=== PATIENT | female | born 1960 | race American Indian/Alaskan Native ===

== ENCOUNTER 2019-03-29 11:23 | Emergency (ER) | payer MEDICAID ==
[~2019-03-29] VITALS: Ht 165.1 cm; Wt 80.0 kg
[2019-03-29] MEDS ORDERED: KETOROLAC 15MG/ML VIAL IM ONE (12:00)
[2019-03-29 13:25] VITALS: BP 116/70
== END 2019-03-29 13:31 | disposition home or self-care (01) ==
LOC: ER 11:23
DX: M54.5 Low back pain (principal); R07.81 Pleurodynia; Y08.89XA Assault by other specified means, initial encounter; Y93.89 Activity, other specified; Y92.89 Other specified places as the place of occurrence of the external cause; Y99.8 Other external cause status
CPT/HCPCS: 96372; 99283; J1885

== ENCOUNTER 2019-04-23 21:04 | Emergency (ER) | payer MEDICAID ==
[~2019-04-23] VITALS: Ht 165.1 cm; Wt 95.0 kg
[2019-04-23] MEDS ORDERED: HYDROCODONE/ACETAMINOPHEN 5/325MG TABLET PO ONE (23:15)
[2019-04-24 00:25] VITALS: BP 121/75
== END 2019-04-24 00:26 | disposition home or self-care (01) ==
LOC: ER 21:27
DX: S20.212A Contusion of left front wall of thorax, initial encounter (principal); S20.211A Contusion of right front wall of thorax, initial encounter; W01.0XXA Fall on same level from slipping, tripping and stumbling without subsequent striking against object, initial encounter; Y93.89 Activity, other specified; Y92.89 Other specified places as the place of occurrence of the external cause; Y99.8 Other external cause status
CPT/HCPCS: 71111; 99283

== ENCOUNTER 2019-05-16 08:22 | Inpatient (IN) | payer MEDICAID ==
[~2019-05-16] VITALS: Ht 160 cm; Wt 84.4 kg
[2019-05-16 09:29] LABS: BASOPHILS % 0.6 % (0.0-2.0); EOSINOPHILS % 2.2 % (0.0-5.0); HEMATOCRIT. 38.3 % (36.0-48.0); HEMOGLOBIN. 13.5 g/dL (12.0-16.0); LYMPHOCYTES % 41.8 % (20.0-50.0); MEAN CORPUSCULAR HEMOGLOBIN 35.8 pg (28.0-32.0); MEAN CORPUSCULAR VOLUME 101.9 fL (81.0-99.0); MEAN PLATELET VOLUME 8.5 fl (7.4-10.4); MONOCYTES % 10.2 % (2.0-8.0); NEUTROPHILS % 45.2 % (40.0-76.0); PLATELET 395 x1000/uL (130-400); RED BLOOD CELL COUNT 3.76 mill/uL (4.2-5.4); RED CELL DISTRIBUTION WIDTH 15.3 % (11.6-14.6)
[2019-05-16 09:32] LABS: CHLORIDE 105 mEq/L (98-107)
[2019-05-16 09:36] LABS: ETHANOL BLOOD < 10 mg/dL
[2019-05-16] MEDS ORDERED: SODIUM CHLORIDE 0.9% 1,000 ML IV ONE (09:56)
[2019-05-16] MEDS ORDERED: POTASSIUM CHLORIDE 20MEQ TABLET SR PO NR (10:00)
[2019-05-16 10:01] LABS: CLARITY URINE CLEAR (CLEAR); COLOR URINE DARK YELLOW (YELLOW); KETONES URINE 1+ (NEGATIVE); LEUKOCYTE ESTERASE URINE TRACE (NEGATIVE); NITRITE URINE NEGATIVE (NEGATIVE); OCCULT BLOOD URINE NEGATIVE (NEGATIVE); PROTEIN URINE TRACE (NEGATIVE); SPECIFIC GRAVITY URINE 1.017 (1.005-1.030)
[2019-05-16] MEDS ORDERED: KETOROLAC 30MG/ML VIAL IV NR (10:15)
[2019-05-16 10:23] LABS: *BARBITURATES SCREEN URINE NEGATIVE (NEGATIVE)
[2019-05-16 10:25] LABS: *BENZODIAZEPINES SCREEN URINE NEGATIVE (NEGATIVE); *COCAINE SCREEN URINE NEGATIVE (NEGATIVE); CANNABINOID URINE SCREEN NEGATIVE (NEGATIVE); METHADONE URINE SCREEN NEGATIVE (NEGATIVE); OPIATES URINE SCREEN NEGATIVE (NEGATIVE); PHENCYCLIDINE URINE SCREEN NEGATIVE (NEGATIVE)
[2019-05-16 10:26] LABS: *AMPHETAMINES SCREEN URINE NEGATIVE (NEGATIVE)
[2019-05-16] MEDS ORDERED: KCL 20MEQ/100ML PREMIX 100 ML IV NR (10:30)
[2019-05-16] MEDS ORDERED: ACETAMINOPHEN 500MG TABLET PO ONE (11:00)
[2019-05-16 12:41] VITALS: BP 132/96
[2019-05-16 12:43] VITALS: BP 135/96
[2019-05-16] MEDS ORDERED: GUAIFENESIN 200MG/10ML SUGAR FREE UDC PO PRN (13:00)
[2019-05-16] MEDS ORDERED: NA PHOS,M-B/NA PHOS,DI-BA ENEMA 118ML PR PRN (13:00)
[2019-05-16] MEDS ORDERED: LORAZEPAM 2MG/ML CPJ IV PRN (13:00)
[2019-05-16] MEDS ORDERED: DOCUSATE SODIUM 100MG CAPSULE PO PRN (13:00)
[2019-05-16] MEDS ORDERED: ACETAMINOPHEN 325MG TABLET PO PRN (13:00)
[2019-05-16] MEDS ORDERED: DIPHENHYDRAMINE 50MG/ML VIAL IV PRN (13:00)
[2019-05-16] MEDS ORDERED: MAGNESIUM/ALUMINUM HYDROXIDE/SIMETHICONE 30ML UDC PO PRN (13:00)
[2019-05-16] MEDS ORDERED: IPRATROPIUM/ALBUTEROL 0.5-3(2.5)MG/3ML NEB INH PRN (13:00)
[2019-05-16] MEDS ORDERED: ONDANSETRON HCL 4MG/2ML INJ IV PRN (13:00)
[2019-05-16] MEDS: ASPIRIN 81MG EC TABLET PO SCH (14:20)
[2019-05-16] MEDS: ENOXAPARIN 40MG/0.4ML SYR SUBCUT SCH (14:21)
[2019-05-16] MEDS: DEXT 5%/0.45% NACL KCL 10MEQ/L 1,000 ML IV SCH (15:17)
[2019-05-16 15:29] LABS: CHLORIDE 109 mEq/L (98-107)
[2019-05-16] MEDS ORDERED: AMLO10TA4 PO (16:02)
[2019-05-16] MEDS ORDERED: MONT10TA24 PO (16:02)
[2019-05-16 16:14] VITALS: BP 140/60
[2019-05-16 19:38] VITALS: BP 155/104
[2019-05-17 00:36] VITALS: BP 138/91
[2019-05-17] MEDS: CLONIDINE 0.1MG TABLET PO PRN ×2 (03:36→21:53)
[2019-05-17] MEDS: DEXT 5%/0.45% NACL KCL 10MEQ/L 1,000 ML IV SCH ×3 (03:47→23:52)
[2019-05-17 03:54] VITALS: BP 125/101
[2019-05-17 07:42] LABS: BASOPHILS % 0.5 % (0.0-2.0); EOSINOPHILS % 3.8 % (0.0-5.0); HEMATOCRIT. 36.2 % (36.0-48.0); HEMOGLOBIN. 12.5 g/dL (12.0-16.0); LYMPHOCYTES % 33.2 % (20.0-50.0); MEAN CORPUSCULAR HEMOGLOBIN 35.7 pg (28.0-32.0); MEAN CORPUSCULAR VOLUME 103.3 fL (81.0-99.0); MEAN PLATELET VOLUME 8.9 fl (7.4-10.4); MONOCYTES % 10.2 % (2.0-8.0); NEUTROPHILS % 52.3 % (40.0-76.0); PLATELET 355 x1000/uL (130-400); RED CELL DISTRIBUTION WIDTH 16.1 % (11.6-14.6)
[2019-05-17 08:00] VITALS: BP 140/103
[2019-05-17] MEDS: ENOXAPARIN 40MG/0.4ML SYR SUBCUT SCH (09:11)
[2019-05-17] MEDS: ASPIRIN 81MG EC TABLET PO SCH (09:11)
[2019-05-17 09:27] LABS: CHLORIDE 109 mEq/L (98-107)
[2019-05-17 09:41] LABS: LDL CHOLESTEROL 92 mg/dL (5-100); T4 FREE 1.63 ng/dL (0.76-1.46)
[2019-05-17 09:42] LABS: HDL CHOLESTEROL 25 mg/dL (40-59)
[2019-05-17] MEDS ORDERED: POTASSIUM CHLORIDE INJ 40 MEQ in DEXT 5% WATER 250 ML IV NR (11:00)
[2019-05-17 12:00] VITALS: BP 137/90
[2019-05-17] MEDS: MORPHINE SULFATE 2 MG/ML CPJ (NOT FOR IM USE) IV PRN (12:34)
[2019-05-17 16:00] VITALS: BP 131/87
[2019-05-17 20:00] VITALS: BP 147/101
[2019-05-18] VITALS: BP 161/94
[2019-05-18 04:00] VITALS: BP 147/90
[2019-05-18 06:51] LABS: CHLORIDE 107 mEq/L (98-107)
[2019-05-18 06:53] LABS: BASOPHILS % 0.4 % (0.0-2.0); HEMATOCRIT. 36.1 % (36.0-48.0); HEMOGLOBIN. 12.6 g/dL (12.0-16.0); LYMPHOCYTES % 30.5 % (20.0-50.0); MEAN CORPUSCULAR HEMOGLOBIN 35.8 pg (28.0-32.0); MEAN CORPUSCULAR VOLUME 102.4 fL (81.0-99.0); MEAN PLATELET VOLUME 9.1 fl (7.4-10.4); MONOCYTES % 8.9 % (2.0-8.0); NEUTROPHILS % 55.2 % (40.0-76.0); PLATELET 349 x1000/uL (130-400); RED BLOOD CELL COUNT 3.53 mill/uL (4.2-5.4); RED CELL DISTRIBUTION WIDTH 15.6 % (11.6-14.6)
[2019-05-18 08:00] VITALS: BP 147/92
[2019-05-18] MEDS: ASPIRIN 81MG EC TABLET PO SCH (09:47)
[2019-05-18] MEDS: MORPHINE SULFATE 2 MG/ML CPJ (NOT FOR IM USE) IV PRN (09:48)
[2019-05-18] MEDS: ENOXAPARIN 40MG/0.4ML SYR SUBCUT SCH (09:48)
[2019-05-18] MEDS ORDERED: POTASSIUM CHLORIDE 20MEQ TABLET SR PO NR (11:00)
[2019-05-18 12:00] VITALS: BP 133/86
[2019-05-18] MEDS: DEXT 5%/0.45% NACL KCL 10MEQ/L 1,000 ML IV SCH (14:52)
[2019-05-18 16:18] VITALS: BP 143/95
[2019-05-18 20:00] VITALS: BP 156/97
[2019-05-18] MEDS: CLONIDINE 0.1MG TABLET PO PRN (21:56)
[2019-05-18] MEDS: HYDROCODONE/ACETAMINOPHEN 5/325MG TABLET PO PRN (21:57)
[2019-05-19] VITALS: BP 130/80
[2019-05-19 04:00] VITALS: BP 131/88
[2019-05-19] MEDS: HYDROCODONE/ACETAMINOPHEN 5/325MG TABLET PO PRN ×3 (05:07→20:35)
[2019-05-19 06:54] LABS: BASOPHILS % 0.5 % (0.0-2.0); EOSINOPHILS % 4.1 % (0.0-5.0); HEMATOCRIT. 37.3 % (36.0-48.0); HEMOGLOBIN. 12.8 g/dL (12.0-16.0); LYMPHOCYTES % 29.7 % (20.0-50.0); MEAN CORPUSCULAR HEMOGLOBIN 35.4 pg (28.0-32.0); MEAN CORPUSCULAR VOLUME 103.3 fL (81.0-99.0); MEAN PLATELET VOLUME 9.3 fl (7.4-10.4); MONOCYTES % 9.8 % (2.0-8.0); NEUTROPHILS % 55.9 % (40.0-76.0); PLATELET 333 x1000/uL (130-400); RED BLOOD CELL COUNT 3.61 mill/uL (4.2-5.4); RED CELL DISTRIBUTION WIDTH 15.8 % (11.6-14.6)
[2019-05-19 07:00] LABS: CHLORIDE 107 mEq/L (98-107)
[2019-05-19 08:10] VITALS: BP 145/101
[2019-05-19] MEDS: ASPIRIN 81MG EC TABLET PO SCH (08:25)
[2019-05-19] MEDS: ENOXAPARIN 40MG/0.4ML SYR SUBCUT SCH (08:25)
[2019-05-19] MEDS: DEXT 5%/0.45% NACL KCL 10MEQ/L 1,000 ML IV SCH ×2 (08:25→22:16)
[2019-05-19 12:00] VITALS: BP 151/100
[2019-05-19 16:00] VITALS: BP 149/91
[2019-05-19 20:00] VITALS: BP 139/89
[2019-05-20 00:44] VITALS: BP 139/98
[2019-05-20] MEDS: HYDROCODONE/ACETAMINOPHEN 5/325MG TABLET PO PRN ×2 (00:59→10:13)
[2019-05-20 04:00] VITALS: BP 146/92
[2019-05-20 08:00] VITALS: BP 146/91
[2019-05-20] MEDS: ENOXAPARIN 40MG/0.4ML SYR SUBCUT SCH (10:13)
[2019-05-20] MEDS: ASPIRIN 81MG EC TABLET PO SCH (10:13)
[2019-05-20 12:00] VITALS: BP 136/93
[2019-05-20 12:22] VITALS: BP 136/93
== END 2019-05-20 13:46 | DRG 422 ==
LOC: ER 08:28 → 8WST 10:50 → ENRESERV 11:23 → 8WST 12:57
PROVIDERS: ADMIT Internal Medicine; ATTEND Internal Medicine
DX: E87.6 Hypokalemia (principal); E86.0 Dehydration; G93.41 Metabolic encephalopathy; I10 Essential (primary) hypertension; R26.9 Unspecified abnormalities of gait and mobility; J45.909 Unspecified asthma, uncomplicated; K21.9 Gastro-esophageal reflux disease without esophagitis; Z79.899 Other long term (current) drug therapy; Z88.0 Allergy status to penicillin; E44.1 Mild protein-calorie malnutrition; Z68.32 Body mass index [BMI] 32.0-32.9, adult
CPT/HCPCS: 36415; 71045; 80048; 80061; 80305; 80307; 80320; 80329; 84439; 84443; 84484; 92610; 93005; 96374; 97162; 99285; J1200; J1650; J1885; J2060; J2270; J3480; J7060; G0480

== ENCOUNTER 2019-06-11 12:25 | Inpatient (IN) | payer MEDICAID ==
[~2019-06-11] VITALS: Ht 167.6 cm; Wt 77.6 kg
[~2019-06-11 12:25] MED LIST: AMLO10TA4 PO; MONT10TA24 PO
[2019-06-11] MEDS ORDERED: SODIUM CHLORIDE 0.9% 1,000 ML IV ONE ×2 (13:22→20:15)
[2019-06-11 13:55] LABS: BASOPHILS % 0.4 % (0.0-2.0); EOSINOPHILS % 2.4 % (0.0-5.0); HEMATOCRIT. 41.7 % (36.0-48.0); HEMOGLOBIN. 14.3 g/dL (12.0-16.0); MEAN CORPUSCULAR HEMOGLOBIN 34.8 pg (28.0-32.0); MEAN CORPUSCULAR VOLUME 101.7 fL (81.0-99.0); MEAN PLATELET VOLUME 11.7 fl (7.4-10.4); MONOCYTES % 11.4 % (2.0-8.0); NEUTROPHILS % 55.8 % (40.0-76.0); PLATELET 227 x1000/uL (130-400); RED CELL DISTRIBUTION WIDTH 15.1 % (11.6-14.6)
[2019-06-11 14:03] LABS: CHLORIDE 110 mEq/L (98-107)
[2019-06-11 14:09] LABS: ETHANOL BLOOD < 10 mg/dL
[2019-06-11] MEDS ORDERED: POTASSIUM CHLORIDE 20MEQ/PACKET PO ONE (16:45)
[2019-06-11] MEDS ORDERED: KCL 20MEQ/100ML PREMIX 100 ML IV ONE (16:45)
[2019-06-11 17:52] LABS: *AMPHETAMINES SCREEN URINE NEGATIVE (NEGATIVE); *BARBITURATES SCREEN URINE NEGATIVE (NEGATIVE); *BENZODIAZEPINES SCREEN URINE NEGATIVE (NEGATIVE); *COCAINE SCREEN URINE NEGATIVE (NEGATIVE); METHADONE URINE SCREEN NEGATIVE (NEGATIVE)
[2019-06-11 17:53] LABS: CANNABINOID URINE SCREEN NEGATIVE (NEGATIVE); OPIATES URINE SCREEN NEGATIVE (NEGATIVE); PHENCYCLIDINE URINE SCREEN NEGATIVE (NEGATIVE)
[2019-06-11 18:15] LABS: CLARITY URINE TURBID (CLEAR); COLOR URINE ORANGE (YELLOW); KETONES URINE TRACE (NEGATIVE); LEUKOCYTE ESTERASE URINE 1+ (NEGATIVE); NITRITE URINE POSITIVE (NEGATIVE); OCCULT BLOOD URINE NEGATIVE (NEGATIVE); PH URINE 5.5 (4.5-8.0); PROTEIN URINE 1+ (NEGATIVE); SPECIFIC GRAVITY URINE 1.035 (1.005-1.030)
[2019-06-11] MEDS ORDERED: ONDANSETRON HCL 4MG/2ML INJ IV PRN (19:15)
[2019-06-11] MEDS ORDERED: LEVOFLOXACIN 500MG PREMIX 100 ML IV SCH (19:15)
[2019-06-11] MEDS ORDERED: CLONIDINE 0.1MG TABLET PO PRN (19:15)
[2019-06-11] MEDS ORDERED: LORAZEPAM 2MG/ML CPJ IV ONE (19:45)
[2019-06-11] MEDS ORDERED: HYDRALAZINE 20MG/ML VIAL IV ONE (21:30)
[2019-06-12] VITALS (7 sets, daily range): BP systolic 142–160; BP diastolic 87–102
[2019-06-12] MEDS: AMLODIPINE 5MG TABLET PO SCH ×3 (00:30→20:26)
[2019-06-12] MEDS: SODIUM CHLORIDE 0.9% 1,000 ML IV SCH ×2 (01:32→14:50)
[2019-06-12] MEDS: LEVOFLOXACIN 500MG PREMIX 100 ML IV SCH (01:32)
[2019-06-12] MEDS: LORAZEPAM 2MG/ML CPJ IV PRN (09:30)
[2019-06-12 09:41] LABS: BASOPHILS % 0.7 % (0.0-2.0); EOSINOPHILS % 3.4 % (0.0-5.0); HEMATOCRIT. 38.3 % (36.0-48.0); HEMOGLOBIN. 13.1 g/dL (12.0-16.0); LYMPHOCYTES % 36.1 % (20.0-50.0); MEAN CORPUSCULAR HEMOGLOBIN 35.1 pg (28.0-32.0); MEAN CORPUSCULAR VOLUME 102.4 fL (81.0-99.0); MONOCYTES % 11.9 % (2.0-8.0); NEUTROPHILS % 47.9 % (40.0-76.0); PLATELET 195 x1000/uL (130-400); RED BLOOD CELL COUNT 3.74 mill/uL (4.2-5.4); RED CELL DISTRIBUTION WIDTH 15.5 % (11.6-14.6)
[2019-06-12 09:57] LABS: CHLORIDE 116 mEq/L (98-107)
[2019-06-12] MEDS: MORPHINE SULFATE 2 MG/ML CPJ (NOT FOR IM USE) IV PRN ×2 (12:21→18:49)
[2019-06-12] MEDS ORDERED: POTASSIUM CHLORIDE INJ 40 MEQ in DEXT 5% WATER 250 ML IV SCH (13:00)
[2019-06-12 19:19] LABS: VITAMIN B12 SERUM 753 pg/mL (211-911)
[2019-06-13] VITALS (7 sets, daily range): BP systolic 141–168; BP diastolic 79–122
[2019-06-13] MEDS: LEVOFLOXACIN 500MG PREMIX 100 ML IV SCH (00:48)
[2019-06-13] MEDS: MORPHINE SULFATE 2 MG/ML CPJ (NOT FOR IM USE) IV PRN (02:01)
[2019-06-13] MEDS: SODIUM CHLORIDE 0.9% 1,000 ML IV SCH ×2 (04:41→15:13)
[2019-06-13 07:32] LABS: CHLORIDE 113 mEq/L (98-107)
[2019-06-13 07:33] LABS: BASOPHILS % 0.2 % (0.0-2.0); EOSINOPHILS % 3.1 % (0.0-5.0); HEMATOCRIT. 37.4 % (36.0-48.0); HEMOGLOBIN. 12.8 g/dL (12.0-16.0); LYMPHOCYTES % 30.6 % (20.0-50.0); MEAN CORPUSCULAR HEMOGLOBIN 34.9 pg (28.0-32.0); MEAN CORPUSCULAR VOLUME 102.2 fL (81.0-99.0); MONOCYTES % 11.9 % (2.0-8.0); NEUTROPHILS % 54.2 % (40.0-76.0); PLATELET 170 x1000/uL (130-400); RED BLOOD CELL COUNT 3.66 mill/uL (4.2-5.4); RED CELL DISTRIBUTION WIDTH 15.3 % (11.6-14.6)
[2019-06-13] MEDS ORDERED: POTASSIUM CHLORIDE 20MEQ TABLET SR PO SCH (08:30)
[2019-06-13] MEDS: AMLODIPINE 5MG TABLET PO SCH ×2 (09:51→22:25)
[2019-06-13] MEDS ORDERED: POTASSIUM CHLORIDE INJ 40 MEQ in DEXT 5% WATER 250 ML IV SCH (10:00)
[2019-06-13] MEDS: LORAZEPAM 2MG/ML CPJ IV PRN (12:58)
[2019-06-13] MEDS: HYDRALAZINE 20MG/ML VIAL IV PRN (13:10)
[2019-06-13 18:34] LABS: BG BASE EXCESS -5.2 mmol/L (-2.0-2.0); BG CARBOXYHEMOGLOBIN 0.2 % (0.5-1.5); BG DEOXYHEMOGLOBIN 3.3 % (0.0-5.0); BG FRACTION INSPIRED OXYGEN 21; BG HCO3 ACT 16.1 mmol/L (22.0-26.0); BG METHEMOGLOBIN 0.3 % (0.0-1.5); BG OXYGEN SATURATION 96.7 % (92.0-98.5); BG OXYHEMOGLOBIN 96.2 % (94.0-97.0); BG PCO2 22.5 mmHg (35.0-45.0); BG PH 7.473 (7.350-7.450); BG PO2 83.9 mmHg (75.0-100.0); BG SAMPLE SITE LEFT RADIAL; BG VENT MODE ROOM AIR
[2019-06-14] VITALS (7 sets, daily range): BP systolic 114–150; BP diastolic 83–111
[2019-06-14] MEDS: LEVOFLOXACIN 500MG PREMIX 100 ML IV SCH (03:25)
[2019-06-14 06:06] LABS: INR 1.2; PROTHROMBIN TIME 12.2 sec (9.6-11.0)
[2019-06-14 06:14] LABS: CHLORIDE 109 mEq/L (98-107)
[2019-06-14 06:22] LABS: BASOPHILS % 0.3 % (0.0-2.0); EOSINOPHILS % 3.3 % (0.0-5.0); HEMATOCRIT. 39.5 % (36.0-48.0); HEMOGLOBIN. 13.6 g/dL (12.0-16.0); LYMPHOCYTES % 32.9 % (20.0-50.0); MEAN CORPUSCULAR HEMOGLOBIN 35.3 pg (28.0-32.0); MEAN CORPUSCULAR VOLUME 102.6 fL (81.0-99.0); MONOCYTES % 10.3 % (2.0-8.0); NEUTROPHILS % 53.2 % (40.0-76.0); PLATELET 174 x1000/uL (130-400); RED BLOOD CELL COUNT 3.85 mill/uL (4.2-5.4); RED CELL DISTRIBUTION WIDTH 15.2 % (11.6-14.6)
[2019-06-14] MEDS: SODIUM CHLORIDE 0.9% 1,000 ML IV SCH ×2 (06:48→20:10)
[2019-06-14] MEDS ORDERED: POTASSIUM CHLORIDE 20MEQ TABLET SR PO SCH (09:00)
[2019-06-14] MEDS ORDERED: LORAZEPAM 2MG/ML CPJ IV SCH (09:15)
[2019-06-14] MEDS: AMLODIPINE 5MG TABLET PO SCH ×2 (09:22→20:58)
[2019-06-14] MEDS ORDERED: KCL 20MEQ/100ML PREMIX 100 ML IV SCH (10:00)
[2019-06-14] MEDS ORDERED: HALOPERIDOL LACTATE 5MG/ML VIAL IM NR (14:45)
[2019-06-14] MEDS: SULFACETAMIDE SODIUM 10% OPHTH DROPS 15ML BOTHEYE SCH ×2 (17:00→20:58)
[2019-06-15] VITALS: BP 147/82
[2019-06-15] MEDS: LEVOFLOXACIN 500MG PREMIX 100 ML IV SCH (01:04)
[2019-06-15] MEDS: LORAZEPAM 2MG/ML CPJ IV PRN ×2 (03:12→22:52)
[2019-06-15 04:00] VITALS: BP 162/106
[2019-06-15] MEDS: MORPHINE SULFATE 2 MG/ML CPJ (NOT FOR IM USE) IV PRN (04:09)
[2019-06-15] MEDS: HYDRALAZINE 20MG/ML VIAL IV PRN (04:13)
[2019-06-15] MEDS: SODIUM CHLORIDE 0.9% 1,000 ML IV SCH ×2 (05:12→22:13)
[2019-06-15 08:00] VITALS: BP 126/87
[2019-06-15] MEDS: SULFACETAMIDE SODIUM 10% OPHTH DROPS 15ML BOTHEYE SCH ×4 (09:40→21:05)
[2019-06-15] MEDS: AMLODIPINE 5MG TABLET PO SCH ×2 (09:41→21:05)
[2019-06-15 12:00] VITALS: BP 119/77
[2019-06-15 16:00] VITALS: BP 156/102
[2019-06-15 20:00] VITALS: BP 145/95
[2019-06-16] VITALS: BP 147/91
[2019-06-16] MEDS: LEVOFLOXACIN 500MG PREMIX 100 ML IV SCH (00:17)
[2019-06-16 04:00] VITALS: BP 150/95
[2019-06-16 06:54] LABS: BASOPHILS % 0.4 % (0.0-2.0); EOSINOPHILS % 4.1 % (0.0-5.0); HEMATOCRIT. 44.8 % (36.0-48.0); HEMOGLOBIN. 15.2 g/dL (12.0-16.0); LYMPHOCYTES % 31.4 % (20.0-50.0); MEAN CORPUSCULAR HEMOGLOBIN 35.4 pg (28.0-32.0); MEAN CORPUSCULAR VOLUME 104.3 fL (81.0-99.0); MEAN PLATELET VOLUME 11.6 fl (7.4-10.4); NEUTROPHILS % 57.1 % (40.0-76.0); PLATELET 190 x1000/uL (130-400); RED BLOOD CELL COUNT 4.29 mill/uL (4.2-5.4); RED CELL DISTRIBUTION WIDTH 15.3 % (11.6-14.6)
[2019-06-16 08:00] VITALS: BP 152/93
[2019-06-16] MEDS: SULFACETAMIDE SODIUM 10% OPHTH DROPS 15ML BOTHEYE SCH ×4 (10:09→20:53)
[2019-06-16] MEDS: AMLODIPINE 5MG TABLET PO SCH ×2 (10:09→20:53)
[2019-06-16 10:28] LABS: CHLORIDE 111 mEq/L (98-107)
[2019-06-16] MEDS ORDERED: POTASSIUM CHLORIDE 20MEQ TABLET SR PO SCH (11:45)
[2019-06-16 12:00] VITALS: BP 152/99
[2019-06-16] MEDS: SODIUM CHLORIDE 0.9% 1,000 ML IV SCH (12:10)
[2019-06-16] MEDS: LORAZEPAM 2MG/ML CPJ IV PRN (12:20)
[2019-06-16] MEDS ORDERED: POTASSIUM CHLORIDE INJ 40 MEQ in DEXT 5% WATER 250 ML IV SCH (13:00)
[2019-06-16] MEDS ORDERED: MAGNESIUM 1 G PREMIX 100 ML IV SCH (13:00)
[2019-06-16 13:02] LABS: HEPATITIS B SURFACE ANTIGEN NEGATIVE
[2019-06-16 13:31] LABS: HEPATITIS A AB IGM NEGATIVE (NEGATIVE)
[2019-06-16 15:56] VITALS: BP 173/108
[2019-06-16] MEDS: HYDRALAZINE 20MG/ML VIAL IV PRN (16:07)
[2019-06-16 19:59] VITALS: BP 158/100
[2019-06-17 00:06] VITALS: BP 148/94
[2019-06-17] MEDS: LEVOFLOXACIN 500MG PREMIX 100 ML IV SCH (00:30)
[2019-06-17] MEDS: SODIUM CHLORIDE 0.9% 1,000 ML IV SCH ×2 (01:31→13:58)
[2019-06-17 04:00] VITALS: BP 163/101
[2019-06-17 04:16] LABS: HIV SCREEN 4G Non Reactive (Non Reactive)
[2019-06-17 08:00] VITALS: BP 156/101
[2019-06-17] MEDS: AMLODIPINE 5MG TABLET PO SCH ×2 (08:59→21:06)
[2019-06-17] MEDS: SULFACETAMIDE SODIUM 10% OPHTH DROPS 15ML BOTHEYE SCH ×4 (08:59→21:06)
[2019-06-17 09:15] LABS: BASOPHILS % 0.2 % (0.0-2.0); EOSINOPHILS % 2.7 % (0.0-5.0); HEMATOCRIT. 39.5 % (36.0-48.0); HEMOGLOBIN. 13.2 g/dL (12.0-16.0); LYMPHOCYTES % 29.1 % (20.0-50.0); MEAN CORPUSCULAR HEMOGLOBIN 33.7 pg (28.0-32.0); MEAN CORPUSCULAR VOLUME 100.6 fL (81.0-99.0); MEAN PLATELET VOLUME 11.1 fl (7.4-10.4); MONOCYTES % 8.1 % (2.0-8.0); NEUTROPHILS % 59.9 % (40.0-76.0); PLATELET 191 x1000/uL (130-400); RED BLOOD CELL COUNT 3.93 mill/uL (4.2-5.4); RED CELL DISTRIBUTION WIDTH 15.4 % (11.6-14.6)
[2019-06-17 09:29] LABS: CHLORIDE 111 mEq/L (98-107)
[2019-06-17] MEDS ORDERED: POTASSIUM CHLORIDE 20MEQ/PACKET PO NR (09:45)
[2019-06-17] MEDS ORDERED: POTASSIUM CHLORIDE INJ 40 MEQ in DEXT 5% WATER 250 ML IV NR ×2 (11:00→14:00)
[2019-06-17 12:00] VITALS: BP 130/88
[2019-06-17 16:00] VITALS: BP 125/104
[2019-06-17 20:57] VITALS: BP 150/97
[2019-06-17] MEDS: LORAZEPAM 2MG/ML CPJ IV PRN (21:07)
[2019-06-18] MEDS ORDERED: HYDRALAZINE 20MG/ML VIAL IV PRN (00:15)
[2019-06-18] MEDS: HYDRALAZINE 20MG/ML VIAL IV PRN (00:19)
[2019-06-18 00:29] VITALS: BP 162/104
[2019-06-18] MEDS ORDERED: MAGNESIUM 2 G PREMIX 50 ML IV NR (00:45)
[2019-06-18] MEDS: LEVOFLOXACIN 500MG PREMIX 100 ML IV SCH (01:28)
[2019-06-18 04:00] VITALS: BP 132/64
[2019-06-18] MEDS: SODIUM CHLORIDE 0.9% 1,000 ML IV SCH ×3 (04:10→17:30)
[2019-06-18 06:29] LABS: BASOPHILS % 0.5 % (0.0-2.0); HEMOGLOBIN. 13.8 g/dL (12.0-16.0); LYMPHOCYTES % 34.8 % (20.0-50.0); MEAN CORPUSCULAR HEMOGLOBIN 34.8 pg (28.0-32.0); MEAN CORPUSCULAR VOLUME 100.6 fL (81.0-99.0); MEAN PLATELET VOLUME 10.6 fl (7.4-10.4); MONOCYTES % 9.2 % (2.0-8.0); NEUTROPHILS % 52.5 % (40.0-76.0); PLATELET 190 x1000/uL (130-400); RED BLOOD CELL COUNT 3.97 mill/uL (4.2-5.4); RED CELL DISTRIBUTION WIDTH 15.2 % (11.6-14.6)
[2019-06-18 06:48] LABS: CHLORIDE 110 mEq/L (98-107)
[2019-06-18 08:00] VITALS: BP 136/95
[2019-06-18] MEDS: POTASSIUM CHLORIDE 20MEQ TABLET SR PO NR ×3 (08:33→08:44)
[2019-06-18] MEDS: AMLODIPINE 5MG TABLET PO SCH ×2 (08:33→20:25)
[2019-06-18] MEDS: SULFACETAMIDE SODIUM 10% OPHTH DROPS 15ML BOTHEYE SCH ×4 (08:33→20:28)
[2019-06-18] MEDS ORDERED: POTASSIUM CHLORIDE INJ 40 MEQ in DEXT 5% WATER 250 ML IV NR (10:00)
[2019-06-18 12:00] VITALS: BP 110/71
[2019-06-18] MEDS: LORAZEPAM 2MG/ML CPJ IV PRN ×2 (13:27→21:49)
[2019-06-18 16:00] VITALS: BP 156/96
[2019-06-18 20:00] VITALS: BP 133/85
[2019-06-18] MEDS: ACETAMINOPHEN 325MG TABLET PO PRN (20:25)
[2019-06-19] VITALS (7 sets, daily range): BP systolic 118–156; BP diastolic 78–96
[2019-06-19] MEDS: LEVOFLOXACIN 500MG PREMIX 100 ML IV SCH (00:33)
[2019-06-19] MEDS: LORAZEPAM 2MG/ML CPJ IV PRN ×3 (04:21→20:42)
[2019-06-19] MEDS: SODIUM CHLORIDE 0.9% 1,000 ML IV SCH ×2 (06:02→21:15)
[2019-06-19 08:00] LABS: BASOPHILS % 0.5 % (0.0-2.0); EOSINOPHILS % 3.6 % (0.0-5.0); HEMATOCRIT. 39.2 % (36.0-48.0); HEMOGLOBIN. 13.1 g/dL (12.0-16.0); LYMPHOCYTES % 36.9 % (20.0-50.0); MEAN CORPUSCULAR VOLUME 101.4 fL (81.0-99.0); MEAN PLATELET VOLUME 10.7 fl (7.4-10.4); MONOCYTES % 8.6 % (2.0-8.0); NEUTROPHILS % 50.4 % (40.0-76.0); PLATELET 184 x1000/uL (130-400); RED BLOOD CELL COUNT 3.87 mill/uL (4.2-5.4); RED CELL DISTRIBUTION WIDTH 15.1 % (11.6-14.6)
[2019-06-19 08:26] LABS: CHLORIDE 112 mEq/L (98-107)
[2019-06-19] MEDS: AMLODIPINE 5MG TABLET PO SCH ×2 (09:00→21:14)
[2019-06-20] VITALS (7 sets, daily range): BP systolic 125–156; BP diastolic 84–95
[2019-06-20 07:00] LABS: BASOPHILS % 0.6 % (0.0-2.0); EOSINOPHILS % 2.7 % (0.0-5.0); HEMATOCRIT. 40.1 % (36.0-48.0); HEMOGLOBIN. 13.7 g/dL (12.0-16.0); LYMPHOCYTES % 30.8 % (20.0-50.0); MEAN CORPUSCULAR HEMOGLOBIN 35.1 pg (28.0-32.0); MEAN CORPUSCULAR VOLUME 102.2 fL (81.0-99.0); MEAN PLATELET VOLUME 10.5 fl (7.4-10.4); NEUTROPHILS % 56.9 % (40.0-76.0); PLATELET 201 x1000/uL (130-400); RED BLOOD CELL COUNT 3.92 mill/uL (4.2-5.4); RED CELL DISTRIBUTION WIDTH 15.3 % (11.6-14.6)
[2019-06-20 08:12] LABS: CHLORIDE 110 mEq/L (98-107)
[2019-06-20] MEDS: SODIUM CHLORIDE 0.9% 1,000 ML IV SCH (09:11)
[2019-06-20] MEDS: AMLODIPINE 5MG TABLET PO SCH ×2 (09:11→22:14)
[2019-06-20] MEDS ORDERED: BACTERIOSTATIC SODIUM CHLORIDE 0.9% 30ML VIAL IJ ONE (10:03)
[2019-06-20] MEDS ORDERED: LEVOFLOXACIN 500MG PREMIX 100 ML IV ONE (13:29)
[2019-06-20] MEDS ORDERED: KCL 20MEQ/100ML PREMIX 100 ML IV NR (14:00)
[2019-06-20] MEDS ORDERED: SIMETHICONE 40 MG/0.6 ML 30ML ONE (14:03)
[2019-06-20] MEDS ORDERED: MIDAZOLAM HCL 5 MG/5 ML VIAL ONE ×2 (14:03→14:33)
[2019-06-20] MEDS ORDERED: FENTANYL CITRATE/PF 50MCG/ML 2ML VIAL ONE ×2 (14:03→14:36)
[2019-06-20] MEDS ORDERED: FENTANYL CITRATE/PF 50MCG/ML 2ML VIAL IV PRN (14:20)
[2019-06-20] MEDS ORDERED: MIDAZOLAM HCL 5 MG/5 ML VIAL IV PRN (14:21)
[2019-06-20] MEDS ORDERED: LEVOFLOXACIN 500MG PREMIX 100 ML IV NR (14:30)
[2019-06-20] MEDS ORDERED: DIAZEPAM 5 MG/ML 2ML CPJ IV NR (14:45)
[2019-06-20] MEDS: ACETAMINOPHEN 325MG TABLET PO PRN (18:23)
[2019-06-20] MEDS: RIFAXIMIN 550 MG TABLET NG SCH (22:14)
[2019-06-21] VITALS: BP 159/93
[2019-06-21 04:00] VITALS: BP 148/86
[2019-06-21 05:51] LABS: BASOPHILS % 0.3 % (0.0-2.0); EOSINOPHILS % 0.8 % (0.0-5.0); HEMATOCRIT. 39.4 % (36.0-48.0); HEMOGLOBIN. 13.7 g/dL (12.0-16.0); LYMPHOCYTES % 21.9 % (20.0-50.0); MEAN CORPUSCULAR HEMOGLOBIN 35.4 pg (28.0-32.0); MEAN CORPUSCULAR VOLUME 101.6 fL (81.0-99.0); MEAN PLATELET VOLUME 10.4 fl (7.4-10.4); MONOCYTES % 10.1 % (2.0-8.0); NEUTROPHILS % 66.9 % (40.0-76.0); PLATELET 196 x1000/uL (130-400); RED BLOOD CELL COUNT 3.88 mill/uL (4.2-5.4); RED CELL DISTRIBUTION WIDTH 14.8 % (11.6-14.6)
[2019-06-21 06:04] LABS: CHLORIDE 109 mEq/L (98-107)
[2019-06-21] MEDS: SODIUM CHLORIDE 0.9% 1,000 ML IV SCH ×2 (06:09→12:10)
[2019-06-21 08:00] VITALS: BP 156/98
[2019-06-21] MEDS: RIFAXIMIN 550 MG TABLET NG SCH ×2 (09:16→21:11)
[2019-06-21] MEDS: AMLODIPINE 5MG TABLET PO SCH ×2 (09:16→21:11)
[2019-06-21 12:00] VITALS: BP 149/89
[2019-06-21] MEDS: ENOXAPARIN 40MG/0.4ML SYR SUBCUT SCH (13:27)
[2019-06-21] MEDS ORDERED: POTASSIUM CHLORIDE INJ 40 MEQ in DEXT 5% WATER 250 ML IV NR (15:30)
[2019-06-21 16:00] VITALS: BP 150/99
[2019-06-21 20:00] VITALS: BP 146/99
[2019-06-22] VITALS: BP 133/107
[2019-06-22] MEDS: SODIUM CHLORIDE 0.9% 1,000 ML IV SCH ×2 (01:19→14:50)
[2019-06-22 04:00] VITALS: BP 125/86
[2019-06-22] MEDS: LORAZEPAM 2MG/ML CPJ IV PRN (06:12)
[2019-06-22 08:00] VITALS: BP 123/78
[2019-06-22] MEDS: RIFAXIMIN 550 MG TABLET NG SCH (09:20)
[2019-06-22] MEDS: ENOXAPARIN 40MG/0.4ML SYR SUBCUT SCH (09:20)
[2019-06-22] MEDS: AMLODIPINE 5MG TABLET PO SCH (09:20)
[2019-06-22 10:37] LABS: BASOPHILS % 0.3 % (0.0-2.0); EOSINOPHILS % 1.3 % (0.0-5.0); HEMATOCRIT. 37.4 % (36.0-48.0); LYMPHOCYTES % 21.1 % (20.0-50.0); MEAN CORPUSCULAR HEMOGLOBIN 34.7 pg (28.0-32.0); MEAN CORPUSCULAR VOLUME 99.9 fL (81.0-99.0); MEAN PLATELET VOLUME 10.4 fl (7.4-10.4); MONOCYTES % 11.6 % (2.0-8.0); NEUTROPHILS % 65.7 % (40.0-76.0); PLATELET 224 x1000/uL (130-400); RED BLOOD CELL COUNT 3.74 mill/uL (4.2-5.4); RED CELL DISTRIBUTION WIDTH 14.8 % (11.6-14.6)
[2019-06-22 11:35] LABS: CHLORIDE 111 mEq/L (98-107)
[2019-06-22 12:12] VITALS: BP 139/88
[2019-06-22] MEDS ORDERED: POTASSIUM CHLORIDE 20MEQ TABLET SR PO NR (12:45)
[2019-06-22 13:56] VITALS: BP 131/85
== END 2019-06-22 16:52 | DRG 720 ==
LOC: ER 12:25 → 6WST 17:07 → EDBEDREQ 17:14 → EDBEDREQSVC 17:14 → EDBEDREQ 17:15 → ENRESERV 19:34
PROVIDERS: ADMIT Internal Medicine; ATTEND Internal Medicine
PROC: 4A00X4Z Measurement of Central Nervous Electrical Activity, External Approach (ICD-10-PCS; 2019-06-15)
PROC: 0DH63UZ Insertion of Feeding Device into Stomach, Percutaneous Approach (ICD-10-PCS; principal; 2019-06-22)
PROC: 0DB68ZX Excision of Stomach, Via Natural or Artificial Opening Endoscopic, Diagnostic (ICD-10-PCS; 2019-06-22)
DX: A41.9 Sepsis, unspecified organism (principal); G82.50 Quadriplegia, unspecified; G93.41 Metabolic encephalopathy; E44.0 Moderate protein-calorie malnutrition; R13.10 Dysphagia, unspecified; S22.32XA Fracture of one rib, left side, initial encounter for closed fracture; N39.0 Urinary tract infection, site not specified; J45.909 Unspecified asthma, uncomplicated; E86.0 Dehydration; E87.6 Hypokalemia; I10 Essential (primary) hypertension; K21.9 Gastro-esophageal reflux disease without esophagitis; K29.70 Gastritis, unspecified, without bleeding; E83.42 Hypomagnesemia; K76.0 Fatty (change of) liver, not elsewhere classified; R62.7 Adult failure to thrive; R29.810 Facial weakness; W18.39XA Other fall on same level, initial encounter; S80.02XA Contusion of left knee, initial encounter; S80.212A Abrasion, left knee, initial encounter; M51.9 Unspecified thoracic, thoracolumbar and lumbosacral intervertebral disc disorder; Y93.89 Activity, other specified; Y92.89 Other specified places as the place of occurrence of the external cause; Y99.8 Other external cause status; Z78.1 Physical restraint status; Z68.27 Body mass index [BMI] 27.0-27.9, adult; Z88.0 Allergy status to penicillin; Z79.899 Other long term (current) drug therapy
CPT/HCPCS: 36415; 36600; 70551; 71045; 72141; 72146; 72148; 73560; 76700; 80048; 80076; 80305; 80320; 80355; 82140; 82375; 82607; 82805; 82962; 83735; 84145; 84443; 85379; 86705; 86709; 86803; 87077; 87186; 87340; 87389; 88305; 88312; 88313; 92610; 93005; 93970; 93971; 93976; 96374; 96375; 99152; 99153; 99285; J0360; J1630; J1650; J1956; J2060; J2250; J2270; J3010; J3475; J3480; J3490; J7030; J7060; G0480; G0500

== ENCOUNTER 2019-08-10 12:49 | Inpatient (IN) | payer MEDICAID ==
[~2019-08-10] VITALS: Ht 162.6 cm; Wt 68.9 kg
[2019-08-10] MEDS ORDERED: PANTOPRAZOLE SODIUM 40 MG/VIAL IV STA (14:23)
[2019-08-10] MEDS ORDERED: PANTOPRAZOLE 80 MG in SODIUM CHLORIDE 0.9% 100 ML IV STA (14:23)
[2019-08-10] MEDS ORDERED: SODIUM CHLORIDE 0.9% 1,000 ML IV ONE (14:23)
[2019-08-10 14:58] LABS: BASOPHILS % 0.8 % (0.0-2.0); EOSINOPHILS % 2.7 % (0.0-5.0); HEMATOCRIT. 35.4 % (36.0-48.0); HEMOGLOBIN. 11.9 g/dL (12.0-16.0); LYMPHOCYTES % 35.3 % (20.0-50.0); MEAN CORPUSCULAR HEMOGLOBIN 33.4 pg (28.0-32.0); MEAN CORPUSCULAR VOLUME 98.9 fL (81.0-99.0); MEAN PLATELET VOLUME 8.6 fl (7.4-10.4); MONOCYTES % 6.9 % (2.0-8.0); NEUTROPHILS % 54.3 % (40.0-76.0); PLATELET 694 x1000/uL (130-400); RED BLOOD CELL COUNT 3.58 mill/uL (4.2-5.4); RED CELL DISTRIBUTION WIDTH 14.1 % (11.6-14.6)
[2019-08-10 15:05] LABS: CHLORIDE 109 mEq/L (98-107)
[2019-08-10 15:06] LABS: INR 1.1; PARTIAL THROMBOPLASTIN TIME 25.2 sec (23.4-31.0); PROTHROMBIN TIME 11.4 sec (9.6-11.0)
[2019-08-10] MEDS ORDERED: ONDANSETRON HCL 4MG/2ML INJ IV PRN (17:15)
[2019-08-10] MEDS: DEXT 5%/0.45% NACL 1000ML 1,000 ML IV SCH (17:15)
[2019-08-11] VITALS (9 sets, daily range): BP systolic 113–147; BP diastolic 65–112
[2019-08-11] MEDS: DEXT 5%/0.45% NACL 1000ML 1,000 ML IV SCH ×3 (03:15→22:14)
[2019-08-11] MEDS ORDERED: LORAZEPAM 2MG/ML CPJ ONE (04:48)
[2019-08-11] MEDS ORDERED: LORAZEPAM 2MG/ML CPJ IV PRN (05:15)
[2019-08-11 05:45] LABS: BASOPHILS % 0.9 % (0.0-2.0); EOSINOPHILS % 2.9 % (0.0-5.0); HEMOGLOBIN. 11.1 g/dL (12.0-16.0); LYMPHOCYTES % 50.9 % (20.0-50.0); MEAN CORPUSCULAR HEMOGLOBIN 33.7 pg (28.0-32.0); MEAN CORPUSCULAR VOLUME 100.3 fL (81.0-99.0); MEAN PLATELET VOLUME 8.4 fl (7.4-10.4); MONOCYTES % 6.3 % (2.0-8.0); PLATELET 562 x1000/uL (130-400); RED BLOOD CELL COUNT 3.29 mill/uL (4.2-5.4); RED CELL DISTRIBUTION WIDTH 14.5 % (11.6-14.6)
[2019-08-11 05:51] LABS: CHLORIDE 112 mEq/L (98-107)
[2019-08-11] MEDS: PANTOPRAZOLE SODIUM 40 MG/VIAL IV SCH ×2 (11:50→21:12)
[2019-08-11] MEDS: LEVOFLOXACIN 500MG PREMIX 100 ML IV SCH (13:32)
[2019-08-11] MEDS ORDERED: CLARITHROMYCIN 500MG TABLET PO SCH (14:30)
[2019-08-11] MEDS: METRONIDAZOLE 500MG TABLET PO SCH ×2 (15:36→21:12)
[2019-08-11 17:12] LABS: TOTAL IRON BINDING CAPACITY 292 ug/dL (250-450)
[2019-08-11] MEDS: CLARITHROMYCIN 500MG TABLET PO SCH ×2 (18:35→21:12)
[2019-08-11] MEDS: LORAZEPAM 2MG/ML CPJ IV PRN (22:12)
[2019-08-12] VITALS (12 sets, daily range): BP systolic 120–166; BP diastolic 61–97
[2019-08-12 06:28] LABS: BASOPHILS % 0.3 % (0.0-2.0); EOSINOPHILS % 3.9 % (0.0-5.0); HEMATOCRIT. 31.3 % (36.0-48.0); HEMOGLOBIN. 10.8 g/dL (12.0-16.0); LYMPHOCYTES % 35.8 % (20.0-50.0); MEAN CORPUSCULAR HEMOGLOBIN 34.6 pg (28.0-32.0); MEAN CORPUSCULAR VOLUME 100.3 fL (81.0-99.0); MEAN PLATELET VOLUME 8.7 fl (7.4-10.4); MONOCYTES % 5.5 % (2.0-8.0); NEUTROPHILS % 54.5 % (40.0-76.0); PLATELET 532 x1000/uL (130-400); RED BLOOD CELL COUNT 3.12 mill/uL (4.2-5.4); RED CELL DISTRIBUTION WIDTH 14.2 % (11.6-14.6)
[2019-08-12 06:49] LABS: CHLORIDE 109 mEq/L (98-107)
[2019-08-12] MEDS: POTASSIUM CHLORIDE 20MEQ TABLET SR PO SCH ×2 (09:00→09:03)
[2019-08-12] MEDS: METRONIDAZOLE 500MG TABLET PO SCH ×2 (09:02→21:25)
[2019-08-12] MEDS: PANTOPRAZOLE SODIUM 40 MG/VIAL IV SCH ×2 (09:03→21:25)
[2019-08-12] MEDS: CLARITHROMYCIN 500MG TABLET PO SCH ×2 (09:03→21:25)
[2019-08-12] MEDS: DEXT 5%/0.45% NACL 1000ML 1,000 ML IV SCH (09:05)
[2019-08-12] MEDS: MORPHINE SULFATE 2 MG/ML CPJ (NOT FOR IM USE) IV PRN ×2 (09:19→21:26)
[2019-08-12] MEDS ORDERED: POTASSIUM CHLORIDE INJ 40 MEQ in DEXT 5% WATER 500 ML IV SCH (10:00)
[2019-08-12] MEDS: LEVOFLOXACIN 500MG PREMIX 100 ML IV SCH (12:42)
[2019-08-12] MEDS ORDERED: MAGNESIUM 2 G PREMIX 50 ML IV NR (13:00)
[2019-08-12] MEDS ORDERED: POTASSIUM CHLORIDE INJ 40 MEQ in DEXT 5% WATER 500 ML IV NR (14:30)
[2019-08-13] VITALS (12 sets, daily range): BP systolic 112–154; BP diastolic 26–99
[2019-08-13] MEDS: DEXT 5%/0.45% NACL 1000ML 1,000 ML IV SCH ×3 (04:29→16:09)
[2019-08-13 08:00] LABS: BASOPHILS % 0.6 % (0.0-2.0); EOSINOPHILS % 5.8 % (0.0-5.0); HEMATOCRIT. 31.7 % (36.0-48.0); HEMOGLOBIN. 10.6 g/dL (12.0-16.0); LYMPHOCYTES % 42.9 % (20.0-50.0); MEAN CORPUSCULAR HEMOGLOBIN 33.6 pg (28.0-32.0); MEAN CORPUSCULAR VOLUME 100.9 fL (81.0-99.0); MEAN PLATELET VOLUME 8.9 fl (7.4-10.4); NEUTROPHILS % 42.7 % (40.0-76.0); PLATELET 503 x1000/uL (130-400); RED BLOOD CELL COUNT 3.14 mill/uL (4.2-5.4); RED CELL DISTRIBUTION WIDTH 14.3 % (11.6-14.6)
[2019-08-13 08:28] LABS: CHLORIDE 111 mEq/L (98-107)
[2019-08-13] MEDS: PANTOPRAZOLE SODIUM 40 MG/VIAL IV SCH ×2 (09:28→20:17)
[2019-08-13] MEDS: CLARITHROMYCIN 500MG TABLET PO SCH ×2 (09:28→20:16)
[2019-08-13] MEDS: METRONIDAZOLE 500MG TABLET PO SCH ×2 (09:28→20:17)
[2019-08-13] MEDS: LEVOFLOXACIN 500MG TABLET PO SCH (10:36)
[2019-08-13] MEDS: MORPHINE SULFATE 2 MG/ML CPJ (NOT FOR IM USE) IV PRN (10:37)
[2019-08-13 14:06] LABS: CLARITY URINE CLEAR (CLEAR); COLOR URINE YELLOW (YELLOW); KETONES URINE NEGATIVE (NEGATIVE); LEUKOCYTE ESTERASE URINE NEGATIVE (NEGATIVE); NITRITE URINE NEGATIVE (NEGATIVE); OCCULT BLOOD URINE NEGATIVE (NEGATIVE); PROTEIN URINE NEGATIVE (NEGATIVE); SPECIFIC GRAVITY URINE 1.013 (1.005-1.030)
[2019-08-14] VITALS (12 sets, daily range): BP systolic 113–153; BP diastolic 74–115
[2019-08-14] MEDS: DEXT 5%/0.45% NACL 1000ML 1,000 ML IV SCH ×3 (02:22→21:43)
[2019-08-14] MEDS: CLARITHROMYCIN 500MG TABLET PO SCH ×2 (09:47→20:22)
[2019-08-14] MEDS: PANTOPRAZOLE SODIUM 40 MG/VIAL IV SCH ×2 (09:47→20:22)
[2019-08-14] MEDS: METRONIDAZOLE 500MG TABLET PO SCH ×2 (09:47→20:22)
[2019-08-14] MEDS: LEVOFLOXACIN 500MG TABLET PO SCH (11:57)
[2019-08-14] MEDS: MORPHINE SULFATE 2 MG/ML CPJ (NOT FOR IM USE) IV PRN (21:24)
[2019-08-15] VITALS (12 sets, daily range): BP systolic 117–152; BP diastolic 76–99
[2019-08-15 06:48] LABS: BASOPHILS % 0.6 % (0.0-2.0); EOSINOPHILS % 4.5 % (0.0-5.0); HEMATOCRIT. 29.7 % (36.0-48.0); HEMOGLOBIN. 10.3 g/dL (12.0-16.0); LYMPHOCYTES % 42.1 % (20.0-50.0); MEAN CORPUSCULAR HEMOGLOBIN 35.1 pg (28.0-32.0); MEAN CORPUSCULAR VOLUME 101.4 fL (81.0-99.0); MONOCYTES % 9.5 % (2.0-8.0); NEUTROPHILS % 43.3 % (40.0-76.0); PLATELET 451 x1000/uL (130-400); RED BLOOD CELL COUNT 2.93 mill/uL (4.2-5.4); RED CELL DISTRIBUTION WIDTH 14.5 % (11.6-14.6)
[2019-08-15 06:49] LABS: CHLORIDE 111 mEq/L (98-107)
[2019-08-15] MEDS: CLARITHROMYCIN 500MG TABLET PO SCH ×2 (08:17→21:19)
[2019-08-15] MEDS: PANTOPRAZOLE SODIUM 40 MG/VIAL IV SCH ×2 (08:17→21:19)
[2019-08-15] MEDS: METRONIDAZOLE 500MG TABLET PO SCH ×2 (08:17→21:19)
[2019-08-15] MEDS: DEXT 5%/0.45% NACL 1000ML 1,000 ML IV SCH (11:46)
[2019-08-15] MEDS: LEVOFLOXACIN 500MG TABLET PO SCH (11:46)
[2019-08-15] MEDS: LORAZEPAM 2MG/ML CPJ IV PRN ×2 (14:41→22:08)
[2019-08-16] VITALS (12 sets, daily range): BP systolic 114–157; BP diastolic 1–143
[2019-08-16] MEDS: MORPHINE SULFATE 2 MG/ML CPJ (NOT FOR IM USE) IV PRN ×2 (02:41→20:31)
[2019-08-16] MEDS ORDERED: IPRATROPIUM/ALBUTEROL 0.5-3(2.5)MG/3ML NEB ONE (07:11)
[2019-08-16] MEDS: METRONIDAZOLE 500MG TABLET PO SCH ×2 (09:01→20:03)
[2019-08-16] MEDS: CLARITHROMYCIN 500MG TABLET PO SCH ×2 (09:01→20:03)
[2019-08-16] MEDS: PANTOPRAZOLE SODIUM 40 MG/VIAL IV SCH ×2 (09:01→20:03)
[2019-08-16] MEDS: LEVOFLOXACIN 500MG TABLET PO SCH (10:22)
[2019-08-17] VITALS (10 sets, daily range): BP systolic 102–138; BP diastolic 66–102
[2019-08-17] MEDS: PANTOPRAZOLE SODIUM 40 MG/VIAL IV SCH ×2 (09:43→21:30)
[2019-08-17] MEDS: CLARITHROMYCIN 500MG TABLET PO SCH ×2 (09:43→21:30)
[2019-08-17] MEDS: METRONIDAZOLE 500MG TABLET PO SCH (09:43)
[2019-08-17] MEDS: LEVOFLOXACIN 500MG TABLET PO SCH (11:28)
[2019-08-17 14:22] LABS: BASOPHILS % 0.5 % (0.0-2.0); EOSINOPHILS % 5.5 % (0.0-5.0); HEMOGLOBIN. 10.8 g/dL (12.0-16.0); LYMPHOCYTES % 43.3 % (20.0-50.0); MEAN CORPUSCULAR HEMOGLOBIN 33.9 pg (28.0-32.0); MEAN CORPUSCULAR VOLUME 100.9 fL (81.0-99.0); MEAN PLATELET VOLUME 8.6 fl (7.4-10.4); NEUTROPHILS % 42.7 % (40.0-76.0); PLATELET 456 x1000/uL (130-400); RED BLOOD CELL COUNT 3.17 mill/uL (4.2-5.4); RED CELL DISTRIBUTION WIDTH 14.7 % (11.6-14.6)
[2019-08-17 14:23] LABS: CHLORIDE 110 mEq/L (98-107)
[2019-08-17] MEDS: MORPHINE SULFATE 2 MG/ML CPJ (NOT FOR IM USE) IV PRN (21:32)
[2019-08-18] VITALS (7 sets, daily range): BP systolic 95–123; BP diastolic 55–80
[2019-08-18] MEDS: MORPHINE SULFATE 2 MG/ML CPJ (NOT FOR IM USE) IV PRN ×2 (01:51→21:17)
[2019-08-18 09:13] LABS: BASOPHILS % 0.4 % (0.0-2.0); EOSINOPHILS % 5.9 % (0.0-5.0); HEMATOCRIT. 29.7 % (36.0-48.0); HEMOGLOBIN. 10.2 g/dL (12.0-16.0); LYMPHOCYTES % 47.9 % (20.0-50.0); MEAN CORPUSCULAR HEMOGLOBIN 33.6 pg (28.0-32.0); MEAN CORPUSCULAR VOLUME 98.1 fL (81.0-99.0); MEAN PLATELET VOLUME 8.8 fl (7.4-10.4); MONOCYTES % 8.8 % (2.0-8.0); PLATELET 440 x1000/uL (130-400); RED BLOOD CELL COUNT 3.03 mill/uL (4.2-5.4); RED CELL DISTRIBUTION WIDTH 14.6 % (11.6-14.6)
[2019-08-18 09:22] LABS: CHLORIDE 111 mEq/L (98-107)
[2019-08-18] MEDS: PANTOPRAZOLE SODIUM 40 MG/VIAL IV SCH ×2 (09:51→21:16)
[2019-08-18] MEDS: CLARITHROMYCIN 500MG TABLET PO SCH (09:51)
[2019-08-18] MEDS: LEVOFLOXACIN 500MG TABLET PO SCH (11:00)
[2019-08-18] MEDS ORDERED: POTASSIUM CHLORIDE 20MEQ TABLET SR PO NR (11:30)
[2019-08-18] MEDS: DIPHENHYDRAMINE 50MG/ML VIAL IV PRN (11:34)
[2019-08-18] MEDS: ALPRAZOLAM 0.5 MG TABLET PO PRN (12:16)
[2019-08-19] VITALS: BP 125/74
[2019-08-19] MEDS: MORPHINE SULFATE 2 MG/ML CPJ (NOT FOR IM USE) IV PRN ×2 (02:57→21:28)
[2019-08-19 04:00] VITALS: BP 132/78
[2019-08-19 08:00] VITALS: BP 121/67
[2019-08-19] MEDS: PANTOPRAZOLE SODIUM 40 MG/VIAL IV SCH ×2 (09:07→21:27)
[2019-08-19 12:00] VITALS: BP 118/75
[2019-08-19 16:00] VITALS: BP 128/67
[2019-08-19] MEDS: DIPHENHYDRAMINE 50MG/ML VIAL IV PRN (18:06)
[2019-08-19] MEDS: NITROFURANTOIN MACROCRYSTAL 50MG CAPSULE GT SCH ×2 (18:28→23:40)
[2019-08-19 20:00] VITALS: BP 123/84
[2019-08-20] VITALS: BP 131/87
[2019-08-20] MEDS: ALPRAZOLAM 0.5 MG TABLET PO PRN ×2 (00:33→10:41)
[2019-08-20] MEDS: MORPHINE SULFATE 2 MG/ML CPJ (NOT FOR IM USE) IV PRN ×3 (02:40→23:16)
[2019-08-20 04:00] VITALS: BP 120/75
[2019-08-20] MEDS: NITROFURANTOIN MACROCRYSTAL 50MG CAPSULE GT SCH ×4 (05:59→23:07)
[2019-08-20] MEDS: DIPHENHYDRAMINE 50MG/ML VIAL IV PRN ×3 (05:59→09:41)
[2019-08-20 08:00] VITALS: BP 101/65
[2019-08-20] MEDS: PANTOPRAZOLE SODIUM 40 MG/VIAL IV SCH ×2 (08:50→21:43)
[2019-08-20 12:00] VITALS: BP 110/74
[2019-08-20] MEDS: METRONIDAZOLE 500MG TABLET PO SCH ×2 (15:23→23:07)
[2019-08-20] MEDS: CLARITHROMYCIN 500MG TABLET PO SCH ×2 (15:23→23:07)
[2019-08-20 16:00] VITALS: BP 120/79
[2019-08-20 20:00] VITALS: BP 117/81
[2019-08-21] VITALS: BP 145/89
[2019-08-21 04:00] VITALS: BP 115/79
[2019-08-21] MEDS: NITROFURANTOIN MACROCRYSTAL 50MG CAPSULE GT SCH ×3 (06:03→17:56)
[2019-08-21 07:54] VITALS: BP 140/88
[2019-08-21] MEDS: PANTOPRAZOLE SODIUM 40 MG/VIAL IV SCH ×2 (08:51→22:04)
[2019-08-21] MEDS: METRONIDAZOLE 500MG TABLET PO SCH ×2 (08:51→22:05)
[2019-08-21] MEDS: CLARITHROMYCIN 500MG TABLET PO SCH ×2 (08:51→22:05)
[2019-08-21 11:48] VITALS: BP 127/75
[2019-08-21 15:35] VITALS: BP 147/94
[2019-08-21 20:38] VITALS: BP 124/94
[2019-08-21] MEDS: DIPHENHYDRAMINE 50MG/ML VIAL IV PRN (22:05)
[2019-08-21] MEDS: MORPHINE SULFATE 2 MG/ML CPJ (NOT FOR IM USE) IV PRN (22:06)
[2019-08-22] VITALS: BP 135/89
[2019-08-22] MEDS: NITROFURANTOIN MACROCRYSTAL 50MG CAPSULE GT SCH ×5 (00:49→23:34)
[2019-08-22 04:00] VITALS: BP 113/76
[2019-08-22 08:00] VITALS: BP 135/81
[2019-08-22] MEDS: PANTOPRAZOLE SODIUM 40 MG/VIAL IV SCH ×2 (09:01→20:46)
[2019-08-22] MEDS: METRONIDAZOLE 500MG TABLET PO SCH ×2 (09:01→20:46)
[2019-08-22] MEDS: CLARITHROMYCIN 500MG TABLET PO SCH ×2 (09:01→20:46)
[2019-08-22] MEDS: DIPHENHYDRAMINE 50MG/ML VIAL IV PRN ×2 (11:31→20:47)
[2019-08-22 12:00] VITALS: BP 128/74
[2019-08-22 19:34] LABS: BASOPHILS % 0.3 % (0.0-2.0); CHLORIDE 109 mEq/L (98-107); EOSINOPHILS % 5.4 % (0.0-5.0); HEMATOCRIT. 35.3 % (36.0-48.0); HEMOGLOBIN. 11.8 g/dL (12.0-16.0); LYMPHOCYTES % 40.2 % (20.0-50.0); MEAN CORPUSCULAR HEMOGLOBIN 32.8 pg (28.0-32.0); MEAN CORPUSCULAR VOLUME 98.3 fL (81.0-99.0); MONOCYTES % 9.3 % (2.0-8.0); NEUTROPHILS % 44.8 % (40.0-76.0); PLATELET 406 x1000/uL (130-400); RED BLOOD CELL COUNT 3.59 mill/uL (4.2-5.4); RED CELL DISTRIBUTION WIDTH 15.4 % (11.6-14.6)
[2019-08-23] VITALS: BP 123/82
[2019-08-23] MEDS: ALPRAZOLAM 0.5 MG TABLET PO PRN (01:17)
[2019-08-23 04:00] VITALS: BP 123/65
[2019-08-23] MEDS: NITROFURANTOIN MACROCRYSTAL 50MG CAPSULE GT SCH (05:48)
[2019-08-23 08:00] VITALS: BP 99/75
[2019-08-23] MEDS: PANTOPRAZOLE SODIUM 40 MG/VIAL IV SCH (09:38)
[2019-08-23] MEDS: CLARITHROMYCIN 500MG TABLET PO SCH (09:38)
[2019-08-23] MEDS: METRONIDAZOLE 500MG TABLET PO SCH (09:38)
[2019-08-23 12:00] VITALS: BP 120/79
[2019-08-23 13:16] VITALS: BP 120/79
== END 2019-08-23 14:50 | disposition home health service (06) | DRG 720 ==
LOC: ER 12:49 → 5EST 17:06 → ENRESERV 08-11 07:27 → 5EST 08-16 22:58 → 5WST 08-16 22:59 → 5EST 08-16 23:00 → 7WST 08-17 16:31
PROVIDERS: ADMIT Internal Medicine; ATTEND Internal Medicine
DX: A41.9 Sepsis, unspecified organism (principal); G82.50 Quadriplegia, unspecified; G93.41 Metabolic encephalopathy; E43 Unspecified severe protein-calorie malnutrition; K92.2 Gastrointestinal hemorrhage, unspecified; E87.8 Other disorders of electrolyte and fluid balance, not elsewhere classified; K76.0 Fatty (change of) liver, not elsewhere classified; S22.32XA Fracture of one rib, left side, initial encounter for closed fracture; D64.9 Anemia, unspecified; I10 Essential (primary) hypertension; J45.909 Unspecified asthma, uncomplicated; J98.11 Atelectasis; K21.9 Gastro-esophageal reflux disease without esophagitis; N39.0 Urinary tract infection, site not specified; B96.81 Helicobacter pylori [H. pylori] as the cause of diseases classified elsewhere; I25.10 Atherosclerotic heart disease of native coronary artery without angina pectoris; R47.02 Dysphasia; R13.10 Dysphagia, unspecified; Z87.440 Personal history of urinary (tract) infections; Z88.0 Allergy status to penicillin; Z79.899 Other long term (current) drug therapy; Z93.1 Gastrostomy status; Z78.1 Physical restraint status; Z68.26 Body mass index [BMI] 26.0-26.9, adult
CPT/HCPCS: 36415; 71045; 74018; 80048; 81003; 82270; 82728; 83540; 83550; 83735; 84484; 86850; 86900; 87077; 87186; 92610; 93005; 93970; 97112; 97163; 97166; 97530; 99291; A6261; C1893; C9113; J1200; J1956; J2060; J2270; J2405; J3475; J3480; J7030; J7050; J7060; J7620

== ENCOUNTER 2019-08-26 22:38 | Inpatient (IN) | payer MEDICAID ==
[~2019-08-26] VITALS: Ht 190.5 cm; Wt 67.1 kg
[2019-08-26 23:50] LABS: BASOPHILS % 0.5 % (0.0-2.0); EOSINOPHILS % 4.8 % (0.0-5.0); HEMOGLOBIN. 12.1 g/dL (12.0-16.0); LYMPHOCYTES % 42.9 % (20.0-50.0); MEAN CORPUSCULAR HEMOGLOBIN 32.5 pg (28.0-32.0); MEAN CORPUSCULAR VOLUME 98.9 fL (81.0-99.0); MEAN PLATELET VOLUME 8.8 fl (7.4-10.4); MONOCYTES % 9.4 % (2.0-8.0); NEUTROPHILS % 42.4 % (40.0-76.0); PLATELET 371 x1000/uL (130-400); RED BLOOD CELL COUNT 3.74 mill/uL (4.2-5.4); RED CELL DISTRIBUTION WIDTH 15.3 % (11.6-14.6)
[2019-08-26 23:58] LABS: CHLORIDE 110 mEq/L (98-107)
[2019-08-27 00:02] LABS: ETHANOL BLOOD < 10 mg/dL
[2019-08-27 00:12] LABS: INR 1.1; PROTHROMBIN TIME 10.9 sec (9.6-11.0)
[2019-08-27 01:18] LABS: CLARITY URINE CLOUDY (CLEAR); COLOR URINE YELLOW (YELLOW); KETONES URINE NEGATIVE (NEGATIVE); LEUKOCYTE ESTERASE URINE NEGATIVE (NEGATIVE); NITRITE URINE NEGATIVE (NEGATIVE); OCCULT BLOOD URINE NEGATIVE (NEGATIVE); PROTEIN URINE NEGATIVE (NEGATIVE); SPECIFIC GRAVITY URINE 1.021 (1.005-1.030)
[2019-08-27 03:15] VITALS: BP 128/81
[2019-08-27] MEDS ORDERED: DIPHENHYDRAMINE 50MG/ML VIAL IM PRN (05:00)
[2019-08-27] MEDS ORDERED: HYDROCODONE/ACETAMINOPHEN 5/325MG TABLET PO PRN (05:00)
[2019-08-27 08:00] VITALS: BP_SYST 145; BP_DIAS 90; BP_DIAS 96
[2019-08-27] MEDS ORDERED: LACTULOSE 20G/30ML UDC PO NR (08:30)
[2019-08-27] MEDS ORDERED: AMLODIPINE 10MG TABLET PO SCH (09:00)
[2019-08-27 12:00] VITALS: BP 132/87
[2019-08-27 12:01] LABS: *AMPHETAMINES SCREEN URINE NEGATIVE (NEGATIVE); *BARBITURATES SCREEN URINE NEGATIVE (NEGATIVE); *BENZODIAZEPINES SCREEN URINE NEGATIVE (NEGATIVE)
[2019-08-27 12:02] LABS: *COCAINE SCREEN URINE NEGATIVE (NEGATIVE); CANNABINOID URINE SCREEN NEGATIVE (NEGATIVE); METHADONE URINE SCREEN NEGATIVE (NEGATIVE); OPIATES URINE SCREEN NEGATIVE (NEGATIVE); PHENCYCLIDINE URINE SCREEN NEGATIVE (NEGATIVE)
[2019-08-27 16:00] VITALS: BP 104/73
[2019-08-27 17:00] VITALS: BP 104/73
[2019-08-27] MEDS ORDERED: MONTELUKAST SODIUM 10MG TABLET PO SCH (17:00)
[2019-08-27] MEDS ORDERED: DIPH25CA83 MT (19:15)
[2019-08-27] MEDS ORDERED: AMLO10TA80 MT (19:15)
[2019-08-27] MEDS ORDERED: HYDR-4001 MT (19:15)
[2019-08-27] MEDS ORDERED: CLOPIDOGREL 75MG TABLET PO SCH (19:15)
[2019-08-27] MEDS ORDERED: LIP40 MT (19:15)
[2019-08-27] MEDS ORDERED: CLOP75TA4 MT (19:15)
[2019-08-27] MEDS ORDERED: ATORVASTATIN CALCIUM 40MG TABLET PO SCH (21:00)
[2019-08-27] MEDS ORDERED: LACTULOSE 20G/30ML UDC PO PRN (21:00)
== END 2019-08-27 20:15 | disposition home or self-care (01) | DRG 861 ==
LOC: ER 22:38 → 6EST 08-27 02:01 → EDBEDREQSVC 08-27 02:03 → EDBEDREQ 08-27 02:03 → EDBEDREQTM 08-27 02:03 → EDBEDREQDT 08-27 02:03 → ENRESERV 08-27 02:13
PROVIDERS: ADMIT Internal Medicine; ATTEND Internal Medicine
DX: R53.1 Weakness (principal); E44.0 Moderate protein-calorie malnutrition; E87.8 Other disorders of electrolyte and fluid balance, not elsewhere classified; R41.0 Disorientation, unspecified; J45.909 Unspecified asthma, uncomplicated; I10 Essential (primary) hypertension; I69.321 Dysphasia following cerebral infarction; Z68.1 Body mass index [BMI] 19.9 or less, adult; Z88.0 Allergy status to penicillin; Z79.899 Other long term (current) drug therapy
CPT/HCPCS: 36415; 71045; 80305; 80320; 81003; 83880; 84484; 93005; 99285; J1200; G0480

== ENCOUNTER 2019-09-02 16:37 | Inpatient (IN) | payer MEDICAID ==
[~2019-09-02] VITALS: Ht 160 cm; Wt 71.2 kg
[~2019-09-02 16:37] MED LIST changes: +AMLO10TA80 MT; +CLOP75TA4 MT; +DIPH25CA83 MT; +HYDR-4001 MT; +LIP40 MT
[2019-09-02] MEDS ORDERED: SODIUM CHLORIDE 0.9% 1,000 ML IV ONE ×2 (18:05→22:15)
[2019-09-02] MEDS ORDERED: ONDANSETRON HCL 4MG/2ML INJ IV STA (18:05)
[2019-09-02] MEDS ORDERED: MORPHINE SULFATE 4 MG/ML CPJ (NOT FOR IM USE) IV STA (18:05)
[2019-09-02 18:25] LABS: CHLORIDE 107 mEq/L (98-107)
[2019-09-02 18:28] LABS: BASOPHILS % 0.5 % (0.0-2.0); EOSINOPHILS % 4.9 % (0.0-5.0); HEMOGLOBIN. 13.5 g/dL (12.0-16.0); LYMPHOCYTES % 44.2 % (20.0-50.0); MEAN CORPUSCULAR HEMOGLOBIN 32.8 pg (28.0-32.0); MEAN CORPUSCULAR VOLUME 97.4 fL (81.0-99.0); MEAN PLATELET VOLUME 9.4 fl (7.4-10.4); MONOCYTES % 7.9 % (2.0-8.0); NEUTROPHILS % 42.5 % (40.0-76.0); PLATELET 384 x1000/uL (130-400); RED BLOOD CELL COUNT 4.11 mill/uL (4.2-5.4); RED CELL DISTRIBUTION WIDTH 14.6 % (11.6-14.6)
[2019-09-02 18:29] LABS: INR 1.2
[2019-09-02] MEDS ORDERED: CEFTRIAXONE 1 G PREMIX 50 ML IV ONE (22:15)
[2019-09-02] MEDS ORDERED: METRONIDAZOLE 500 MG PREMIX 100 ML IV ONE (22:15)
[2019-09-03 00:45] VITALS: BP 126/82
[2019-09-03 04:00] VITALS: BP 125/75
[2019-09-03] MEDS ORDERED: HYDROCODONE/ACETAMINOPHEN 5/325MG TABLET PO PRN (04:45)
[2019-09-03] MEDS: DIPHENHYDRAMINE 50MG/ML VIAL IM PRN ×2 (06:13→17:22)
[2019-09-03 08:00] VITALS: BP 114/80
[2019-09-03] MEDS ORDERED: AMLODIPINE 5MG TABLET PO NR (09:00)
[2019-09-03] MEDS: ENOXAPARIN 40MG/0.4ML SYR SUBCUT SCH (09:57)
[2019-09-03] MEDS ORDERED: PIPERACILLIN/TAZOBACTAM 3.375 G in DEXT 5% WATER 100 ML IV SCH (10:45)
[2019-09-03 12:00] VITALS: BP 115/79
[2019-09-03] MEDS: LEVOFLOXACIN 500MG PREMIX 100 ML IV SCH (12:36)
[2019-09-03] MEDS: METRONIDAZOLE 500 MG PREMIX 100 ML IV SCH ×2 (12:36→22:35)
[2019-09-03 16:00] VITALS: BP 103/64
[2019-09-03 16:31] LABS: CHLORIDE 108 mEq/L (98-107)
[2019-09-03 16:40] LABS: BASOPHILS % 0.4 % (0.0-2.0); EOSINOPHILS % 5.5 % (0.0-5.0); HEMOGLOBIN. 11.9 g/dL (12.0-16.0); LYMPHOCYTES % 40.6 % (20.0-50.0); MEAN CORPUSCULAR VOLUME 97.2 fL (81.0-99.0); MEAN PLATELET VOLUME 9.6 fl (7.4-10.4); MONOCYTES % 8.6 % (2.0-8.0); NEUTROPHILS % 44.9 % (40.0-76.0); PLATELET 329 x1000/uL (130-400); RED CELL DISTRIBUTION WIDTH 14.4 % (11.6-14.6)
[2019-09-03] MEDS ORDERED: POTASSIUM CHLORIDE INJ 40 MEQ in DEXT 5% WATER 230 ML IV NR (19:30)
[2019-09-03 20:00] VITALS: BP 118/68
[2019-09-04] VITALS (7 sets, daily range): BP systolic 100–134; BP diastolic 62–88
[2019-09-04] MEDS: DIPHENHYDRAMINE 50MG/ML VIAL IM PRN ×3 (00:13→22:36)
[2019-09-04] MEDS: METRONIDAZOLE 500 MG PREMIX 100 ML IV SCH ×3 (05:34→21:34)
[2019-09-04 06:40] LABS: BASOPHILS % 0.3 % (0.0-2.0); EOSINOPHILS % 6.1 % (0.0-5.0); HEMATOCRIT. 36.2 % (36.0-48.0); HEMOGLOBIN. 12.4 g/dL (12.0-16.0); MEAN CORPUSCULAR HEMOGLOBIN 33.2 pg (28.0-32.0); MEAN CORPUSCULAR VOLUME 97.4 fL (81.0-99.0); MEAN PLATELET VOLUME 9.6 fl (7.4-10.4); NEUTROPHILS % 41.6 % (40.0-76.0); PLATELET 327 x1000/uL (130-400); RED BLOOD CELL COUNT 3.72 mill/uL (4.2-5.4); RED CELL DISTRIBUTION WIDTH 14.4 % (11.6-14.6)
[2019-09-04 06:51] LABS: CHLORIDE 108 mEq/L (98-107)
[2019-09-04] MEDS: ENOXAPARIN 40MG/0.4ML SYR SUBCUT SCH (08:58)
[2019-09-04] MEDS ORDERED: POTASSIUM CHLORIDE 20MEQ TABLET SR PO SCH (11:15)
[2019-09-04] MEDS: LEVOFLOXACIN 500MG PREMIX 100 ML IV SCH (12:47)
[2019-09-04] MEDS: NYSTATIN POWDER 15GM TOP SCH ×2 (16:49→21:31)
[2019-09-05] VITALS: BP 101/74
[2019-09-05 04:00] VITALS: BP 122/79
[2019-09-05] MEDS: METRONIDAZOLE 500 MG PREMIX 100 ML IV SCH (05:39)
[2019-09-05 08:00] VITALS: BP 123/87
[2019-09-05] MEDS: ENOXAPARIN 40MG/0.4ML SYR SUBCUT SCH (08:42)
[2019-09-05] MEDS: NYSTATIN POWDER 15GM TOP SCH (08:42)
[2019-09-05 12:00] VITALS: BP 121/81
[2019-09-05 15:08] VITALS: BP 121/81
[2019-09-05 16:00] VITALS: BP 123/87
== END 2019-09-05 19:30 | disposition home or self-care (01) | DRG 813 ==
LOC: ER 16:37 → EDBEDREQTM 22:53 → EDBEDREQ 22:53 → 8WST 09-03 00:45
PROVIDERS: ADMIT Internal Medicine; ATTEND Internal Medicine
PROC: 0DP6XUZ Removal of Feeding Device from Stomach, External Approach (ICD-10-PCS; principal; 2019-09-04)
DX: L76.82 Other postprocedural complications of skin and subcutaneous tissue (principal); G82.50 Quadriplegia, unspecified; L89.151 Pressure ulcer of sacral region, stage 1; L03.311 Cellulitis of abdominal wall; R13.10 Dysphagia, unspecified; E88.09 Other disorders of plasma-protein metabolism, not elsewhere classified; K76.0 Fatty (change of) liver, not elsewhere classified; E87.6 Hypokalemia; K57.90 Diverticulosis of intestine, part unspecified, without perforation or abscess without bleeding; E11.9 Type 2 diabetes mellitus without complications; J45.909 Unspecified asthma, uncomplicated; I10 Essential (primary) hypertension; Y83.3 Surgical operation with formation of external stoma as the cause of abnormal reaction of the patient, or of later complication, without mention of misadventure at the time of the procedure; Y92.89 Other specified places as the place of occurrence of the external cause; Z90.710 Acquired absence of both cervix and uterus; Z86.73 Personal history of transient ischemic attack (TIA), and cerebral infarction without residual deficits; Z88.0 Allergy status to penicillin; Z79.899 Other long term (current) drug therapy
CPT/HCPCS: 36415; 74176; 80048; 84145; 96374; 97162; 99285; A6261; C1893; J0696; J1200; J1650; J1956; J2270; J2405; J3480; J3490; J7030; J7040; J7060

== ENCOUNTER 2019-09-11 10:05 | Emergency (ER) | payer MEDICAID ==
[~2019-09-11] VITALS: Ht 170.2 cm; Wt 59.0 kg
[2019-09-11 11:38] LABS: BASOPHILS % 0.5 % (0.0-2.0); EOSINOPHILS % 6.7 % (0.0-5.0); HEMATOCRIT. 36.4 % (36.0-48.0); HEMOGLOBIN. 12.4 g/dL (12.0-16.0); LYMPHOCYTES % 38.9 % (20.0-50.0); MEAN CORPUSCULAR HEMOGLOBIN 32.3 pg (28.0-32.0); MEAN CORPUSCULAR VOLUME 95.1 fL (81.0-99.0); MEAN PLATELET VOLUME 9.6 fl (7.4-10.4); NEUTROPHILS % 42.9 % (40.0-76.0); PLATELET 319 x1000/uL (130-400); RED BLOOD CELL COUNT 3.83 mill/uL (4.2-5.4); RED CELL DISTRIBUTION WIDTH 14.6 % (11.6-14.6)
[2019-09-11 11:44] LABS: CHLORIDE 108 mEq/L (98-107)
[2019-09-11 11:45] LABS: INR 1.1; PROTHROMBIN TIME 11.7 sec (9.6-11.0)
[2019-09-11 12:15] LABS: CREATINE KINASE 25 IU/L (26-192)
[2019-09-11 12:26] LABS: CLARITY URINE CLEAR (CLEAR); COLOR URINE YELLOW (YELLOW); KETONES URINE 3+ (NEGATIVE); LEUKOCYTE ESTERASE URINE NEGATIVE (NEGATIVE); NITRITE URINE NEGATIVE (NEGATIVE); OCCULT BLOOD URINE NEGATIVE (NEGATIVE); PH URINE 5.5 (4.5-8.0); PROTEIN URINE TRACE (NEGATIVE); SPECIFIC GRAVITY URINE 1.022 (1.005-1.030)
[2019-09-11] MEDS ORDERED: POTASSIUM CHLORIDE 20MEQ TABLET SR PO NR (13:15)
[2019-09-11 15:32] VITALS: BP 132/77
== END 2019-09-11 15:38 | disposition home or self-care (01) ==
LOC: ER 10:17
DX: M79.10 Myalgia, unspecified site (principal); E87.6 Hypokalemia; R25.2 Cramp and spasm; I10 Essential (primary) hypertension; J45.909 Unspecified asthma, uncomplicated; Z86.73 Personal history of transient ischemic attack (TIA), and cerebral infarction without residual deficits; Z88.0 Allergy status to penicillin; Z79.899 Other long term (current) drug therapy
CPT/HCPCS: 36415; 80053; 81003; 82550; 85025; 85610; 99283; Z7610

== ENCOUNTER 2019-09-21 16:38 | Emergency (ER) | payer MEDICAID ==
[~2019-09-21] VITALS: Ht 167.6 cm; Wt 75.0 kg
[2019-09-21] MEDS ORDERED: SODIUM CHLORIDE 0.9% 1,000 ML IV ONE (16:52)
[2019-09-21 17:27] LABS: BASOPHILS % 0.6 % (0.0-2.0); EOSINOPHILS % 6.2 % (0.0-5.0); HEMATOCRIT. 39.6 % (36.0-48.0); HEMOGLOBIN. 13.3 g/dL (12.0-16.0); LYMPHOCYTES % 41.1 % (20.0-50.0); MEAN CORPUSCULAR HEMOGLOBIN 31.7 pg (28.0-32.0); MEAN CORPUSCULAR VOLUME 94.7 fL (81.0-99.0); MONOCYTES % 8.2 % (2.0-8.0); NEUTROPHILS % 43.9 % (40.0-76.0); PLATELET 351 x1000/uL (130-400); RED BLOOD CELL COUNT 4.18 mill/uL (4.2-5.4); RED CELL DISTRIBUTION WIDTH 15.2 % (11.6-14.6)
[2019-09-21 17:28] LABS: CHLORIDE 109 mEq/L (98-107)
[2019-09-21] MEDS ORDERED: HYDROCODONE/ACETAMINOPHEN 5/325MG TABLET PO ONE (21:45)
[2019-09-21] MEDS ORDERED: KETOROLAC 30MG/ML VIAL IV ONE (21:45)
[2019-09-22 01:00] VITALS: BP 123/61
== END 2019-09-22 01:19 | disposition home or self-care (01) ==
LOC: ER 16:38
DX: R25.2 Cramp and spasm (principal); I10 Essential (primary) hypertension; Z86.73 Personal history of transient ischemic attack (TIA), and cerebral infarction without residual deficits
CPT/HCPCS: 36415; 80053; 83735; 83880; 84484; 85025; 96374; 99283; J1885; J7030; Z7610

== ENCOUNTER 2019-10-08 10:57 | Emergency (ER) | payer MEDICAID ==
[~2019-10-08] VITALS: Ht 162.6 cm; Wt 70.0 kg
[2019-10-08] MEDS ORDERED: IBUPROFEN 400MG TABLET PO ONE (12:00)
[2019-10-08] MEDS ORDERED: ACETAMINOPHEN 325MG TABLET PO ONE (12:00)
[2019-10-08] MEDS ORDERED: BACLOFEN 10MG TABLET PO ONE (12:00)
[2019-10-08 14:35] LABS: BASOPHILS % 0.7 % (0.0-2.0); EOSINOPHILS % 5.5 % (0.0-5.0); HEMATOCRIT. 40.5 % (36.0-48.0); HEMOGLOBIN. 13.5 g/dL (12.0-16.0); LYMPHOCYTES % 56.9 % (20.0-50.0); MEAN CORPUSCULAR HEMOGLOBIN 31.6 pg (28.0-32.0); MEAN CORPUSCULAR VOLUME 94.6 fL (81.0-99.0); MEAN PLATELET VOLUME 9.2 fl (7.4-10.4); MONOCYTES % 7.3 % (2.0-8.0); NEUTROPHILS % 29.6 % (40.0-76.0); PLATELET 257 x1000/uL (130-400); RED BLOOD CELL COUNT 4.28 mill/uL (4.2-5.4)
[2019-10-08 14:41] LABS: CHLORIDE 110 mEq/L (98-107)
[2019-10-08 14:50] LABS: CREATINE KINASE 24 IU/L (26-192)
[2019-10-08] MEDS ORDERED: POTASSIUM CHLORIDE 20MEQ/PACKET PO ONE (15:15)
[2019-10-08 18:34] VITALS: BP 126/76
== END 2019-10-08 18:40 | disposition home or self-care (01) ==
LOC: ER 12:23
DX: E87.6 Hypokalemia (principal); R25.2 Cramp and spasm; I69.398 Other sequelae of cerebral infarction; I10 Essential (primary) hypertension; Z74.01 Bed confinement status
CPT/HCPCS: 36415; 82550; 99284

== ENCOUNTER 2019-10-13 15:04 | Emergency (ER) | payer MEDICAID ==
[~2019-10-13] VITALS: Ht 167.6 cm; Wt 69.0 kg
[2019-10-13] MEDS ORDERED: IBUPROFEN 600MG TABLET PO STA (15:18)
[2019-10-13 15:52] LABS: HEMATOCRIT. 39.5 % (36.0-48.0); HEMOGLOBIN. 13.2 g/dL (12.0-16.0); MEAN CORPUSCULAR HEMOGLOBIN 31.5 pg (28.0-32.0); MEAN CORPUSCULAR VOLUME 93.8 fL (81.0-99.0); MEAN PLATELET VOLUME 9.1 fl (7.4-10.4); PLATELET 267 x1000/uL (130-400); RED BLOOD CELL COUNT 4.21 mill/uL (4.2-5.4)
[2019-10-13 15:56] LABS: CHLORIDE 111 mEq/L (98-107)
[2019-10-13 16:12] LABS: PLATELET ESTIMATE NORMAL
[2019-10-13 21:15] VITALS: BP 102/60
== END 2019-10-13 21:20 | disposition home or self-care (01) ==
LOC: ER 15:04
DX: M79.10 Myalgia, unspecified site (principal); G89.29 Other chronic pain; I10 Essential (primary) hypertension; J45.909 Unspecified asthma, uncomplicated; Z86.73 Personal history of transient ischemic attack (TIA), and cerebral infarction without residual deficits; Z74.01 Bed confinement status; Z88.0 Allergy status to penicillin
CPT/HCPCS: 36415; 80048; 99283

== ENCOUNTER 2019-12-20 11:37 | Inpatient (IN) | payer MEDICAID ==
[~2019-12-20] VITALS: Ht 160 cm; Wt 65.8 kg
[~2019-12-20 11:37] MED LIST changes: -MONT10TA24 PO; +MONT10TA26 PO
[2019-12-20 12:59] LABS: BASOPHILS % 0.4 % (0.0-2.0); EOSINOPHILS % 5.8 % (0.0-5.0); HEMATOCRIT. 37.4 % (36.0-48.0); HEMOGLOBIN. 12.7 g/dL (12.0-16.0); LYMPHOCYTES % 48.2 % (20.0-50.0); MEAN CORPUSCULAR HEMOGLOBIN 31.7 pg (28.0-32.0); MEAN CORPUSCULAR VOLUME 93.5 fL (81.0-99.0); MEAN PLATELET VOLUME 8.3 fl (7.4-10.4); MONOCYTES % 8.6 % (2.0-8.0); PLATELET 275 x1000/uL (130-400); RED CELL DISTRIBUTION WIDTH 16.6 % (11.6-14.6)
[2019-12-20 13:03] LABS: INR 1.1; PROTHROMBIN TIME 10.9 sec (9.6-11.0)
[2019-12-20 13:04] LABS: CHLORIDE 111 mEq/L (98-107)
[2019-12-20 14:06] LABS: CREATINE KINASE 48 IU/L (26-192)
[2019-12-20] MEDS ORDERED: SODIUM CHLORIDE 0.9% 1,000 ML IV ONE (14:27)
[2019-12-20] MEDS ORDERED: ASPIRIN 325MG EC TABLET PO ONE (14:30)
[2019-12-20] MEDS ORDERED: HYDRALAZINE 20MG/ML VIAL IV PRN (18:15)
[2019-12-20] MEDS ORDERED: GUAIFENESIN 200MG/10ML SUGAR FREE UDC PO PRN (18:15)
[2019-12-20] MEDS ORDERED: ONDANSETRON HCL 4MG/2ML INJ IV PRN (18:15)
[2019-12-20] MEDS ORDERED: ACETAMINOPHEN 325MG TABLET PO PRN (18:15)
[2019-12-20] MEDS ORDERED: MAGNESIUM/ALUMINUM HYDROXIDE/SIMETHICONE 30ML UDC PO PRN (18:15)
[2019-12-20] MEDS ORDERED: DOCUSATE SODIUM 100MG CAPSULE PO PRN (18:15)
[2019-12-20] MEDS ORDERED: CLONIDINE 0.1MG TABLET PO PRN (18:15)
[2019-12-20] MEDS ORDERED: IPRATROPIUM/ALBUTEROL 0.5-3(2.5)MG/3ML NEB HHN PRN (18:15)
[2019-12-20] MEDS ORDERED: DIPHENHYDRAMINE 50MG/ML VIAL IV PRN (18:15)
[2019-12-20 18:31] LABS: CLARITY URINE TURBID (CLEAR); COLOR URINE YELLOW (YELLOW); KETONES URINE NEGATIVE (NEGATIVE); LEUKOCYTE ESTERASE URINE NEGATIVE (NEGATIVE); NITRITE URINE POSITIVE (NEGATIVE); OCCULT BLOOD URINE NEGATIVE (NEGATIVE); PH URINE 6.5 (4.5-8.0); PROTEIN URINE NEGATIVE (NEGATIVE); SPECIFIC GRAVITY URINE 1.017 (1.005-1.030)
[2019-12-20 22:25] VITALS: BP 108/70
[2019-12-20] MEDS: MORPHINE SULFATE 2 MG/ML CPJ (NOT FOR IM USE) IV PRN (23:19)
[2019-12-21] VITALS: BP 112/72
[2019-12-21 00:59] LABS: CREATINE KINASE 42 IU/L (26-192)
[2019-12-21 01:00] LABS: CREATINE KINASE MB FRACTION < 1.0 ng/mL (0.5-3.6)
[2019-12-21] MEDS: MORPHINE SULFATE 2 MG/ML CPJ (NOT FOR IM USE) IV PRN ×2 (02:48→20:25)
[2019-12-21] MEDS: ENOXAPARIN 40MG/0.4ML SYR SUBCUT SCH ×2 (03:07→22:31)
[2019-12-21] MEDS: SODIUM CHLORIDE 0.9% INJ 3ML FLUSH IVF SCH ×4 (03:07→22:30)
[2019-12-21] MEDS: LORAZEPAM 2MG/ML CPJ IV PRN ×2 (03:44→22:30)
[2019-12-21 04:00] VITALS: BP 115/70
[2019-12-21 07:57] LABS: BASOPHILS % 0.3 % (0.0-2.0); EOSINOPHILS % 4.9 % (0.0-5.0); HEMATOCRIT. 39.7 % (36.0-48.0); HEMOGLOBIN. 13.1 g/dL (12.0-16.0); LYMPHOCYTES % 53.3 % (20.0-50.0); MEAN CORPUSCULAR HEMOGLOBIN 31.4 pg (28.0-32.0); MEAN CORPUSCULAR VOLUME 95.2 fL (81.0-99.0); MEAN PLATELET VOLUME 8.4 fl (7.4-10.4); MONOCYTES % 9.9 % (2.0-8.0); NEUTROPHILS % 31.6 % (40.0-76.0); PLATELET 257 x1000/uL (130-400); RED BLOOD CELL COUNT 4.17 mill/uL (4.2-5.4); RED CELL DISTRIBUTION WIDTH 16.3 % (11.6-14.6)
[2019-12-21 08:00] VITALS: BP 113/70
[2019-12-21 08:17] LABS: CHLORIDE 110 mEq/L (98-107)
[2019-12-21 09:17] LABS: CREATINE KINASE 48 IU/L (26-192)
[2019-12-21 09:19] LABS: CREATINE KINASE MB FRACTION < 1.0 ng/mL (0.5-3.6)
[2019-12-21 17:01] LABS: CREATINE KINASE 64 IU/L (26-192)
[2019-12-21 17:04] LABS: T4 FREE 1.18 ng/dL (0.76-1.46)
[2019-12-21 17:08] LABS: CREATINE KINASE MB FRACTION < 1.0 ng/mL (0.5-3.6)
[2019-12-21 23:48] LABS: CREATINE KINASE 75 IU/L (26-192)
[2019-12-21 23:49] LABS: CREATINE KINASE MB FRACTION < 1.0 ng/mL (0.5-3.6)
[2019-12-22] MEDS: LORAZEPAM 2MG/ML CPJ IV PRN (01:45)
[2019-12-22] MEDS: MORPHINE SULFATE 2 MG/ML CPJ (NOT FOR IM USE) IV PRN ×2 (04:33→14:58)
[2019-12-22] MEDS: SODIUM CHLORIDE 0.9% INJ 3ML FLUSH IVF SCH ×3 (05:53→20:09)
[2019-12-22 07:33] LABS: CREATINE KINASE 97 IU/L (26-192)
[2019-12-22 07:34] LABS: CREATINE KINASE MB FRACTION < 1.0 ng/mL (0.5-3.6)
[2019-12-22 08:00] VITALS: BP 110/64
[2019-12-22 12:00] VITALS: BP 115/67
[2019-12-22 16:13] VITALS: BP 120/78
[2019-12-22] MEDS: HYDROCODONE/ACETAMINOPHEN 10/325MG TABLET PO PRN (20:09)
[2019-12-22] MEDS: ENOXAPARIN 40MG/0.4ML SYR SUBCUT SCH (23:01)
[2019-12-23] VITALS: BP 113/64
[2019-12-23] MEDS: HYDROCODONE/ACETAMINOPHEN 10/325MG TABLET PO PRN (01:30)
[2019-12-23 04:00] VITALS: BP 110/67
[2019-12-23] MEDS: SODIUM CHLORIDE 0.9% INJ 3ML FLUSH IVF SCH (06:36)
[2019-12-23 08:30] VITALS: BP 96/65
[2019-12-23] MEDS: MORPHINE SULFATE 2 MG/ML CPJ (NOT FOR IM USE) IV PRN (08:34)
[2019-12-23 09:33] VITALS: BP 96/65
[2019-12-23 12:00] VITALS: BP 110/73
== END 2019-12-23 14:48 | disposition home or self-care (01) | DRG 351 ==
LOC: ER 11:37 → 7WST 17:03 → EDBEDREQ 17:05 → ENRESERV 20:39
PROVIDERS: ADMIT Internal Medicine; ATTEND Internal Medicine
DX: M79.605 Pain in left leg (principal); E87.8 Other disorders of electrolyte and fluid balance, not elsewhere classified; R53.1 Weakness; M79.604 Pain in right leg; E86.0 Dehydration; E78.5 Hyperlipidemia, unspecified; I10 Essential (primary) hypertension; J45.909 Unspecified asthma, uncomplicated; Z74.01 Bed confinement status; Z86.73 Personal history of transient ischemic attack (TIA), and cerebral infarction without residual deficits; Z88.0 Allergy status to penicillin; Z79.899 Other long term (current) drug therapy
CPT/HCPCS: 36415; 71045; 80053; 80061; 81003; 82550; 82553; 83036; 83880; 84439; 84443; 84484; 85025; 85379; 93005; 93306; 93970; 96372; 96374; 96375; 97162; 99285; J1650; J2060; J2270

== ENCOUNTER 2019-12-31 16:42 | Emergency (ER) | payer MEDICAID ==
[~2019-12-31] VITALS: Ht 162.6 cm; Wt 72.0 kg
[~2019-12-31 16:42] MED LIST changes: +MONT10TA24 PO; -MONT10TA26 PO
[2019-12-31] MEDS ORDERED: IBUPROFEN 200MG TABLET PO ONE (17:30)
[2019-12-31] MEDS ORDERED: GABAPENTIN 100MG CAPSULE PO ONE (17:30)
[2019-12-31] MEDS ORDERED: ACETAMINOPHEN 325MG TABLET PO ONE (17:30)
[2019-12-31 17:32] LABS: CLARITY URINE TURBID (CLEAR); COLOR URINE YELLOW (YELLOW); KETONES URINE NEGATIVE (NEGATIVE); LEUKOCYTE ESTERASE URINE NEGATIVE (NEGATIVE); NITRITE URINE NEGATIVE (NEGATIVE); OCCULT BLOOD URINE NEGATIVE (NEGATIVE); PROTEIN URINE NEGATIVE (NEGATIVE); SPECIFIC GRAVITY URINE 1.018 (1.005-1.030)
[2019-12-31 18:05] LABS: BASOPHILS % 0.5 % (0.0-2.0); EOSINOPHILS % 6.5 % (0.0-5.0); HEMOGLOBIN. 12.2 g/dL (12.0-16.0); LYMPHOCYTES % 57.5 % (20.0-50.0); MEAN CORPUSCULAR VOLUME 94.5 fL (81.0-99.0); MEAN PLATELET VOLUME 8.6 fl (7.4-10.4); NEUTROPHILS % 27.5 % (40.0-76.0); PLATELET 249 x1000/uL (130-400); RED BLOOD CELL COUNT 3.81 mill/uL (4.2-5.4); RED CELL DISTRIBUTION WIDTH 15.8 % (11.6-14.6)
[2019-12-31 18:11] LABS: CHLORIDE 112 mEq/L (98-107)
[2019-12-31 19:30] VITALS: BP 142/90
[2019-12-31] MEDS ORDERED: NITROFURANTOIN 100MG M/M CAPSULE PO ONE (21:00)
== END 2019-12-31 22:31 | disposition home or self-care (01) ==
LOC: ER 16:42
DX: N39.0 Urinary tract infection, site not specified (principal); M79.10 Myalgia, unspecified site; I10 Essential (primary) hypertension; I69.359 Hemiplegia and hemiparesis following cerebral infarction affecting unspecified side; Z74.01 Bed confinement status; Z88.0 Allergy status to penicillin
CPT/HCPCS: 36415; 80053; 81003; 83735; 85025; 99284

== ENCOUNTER 2020-01-20 01:59 | Emergency (ER) | payer MEDICAID ==
[~2020-01-20] VITALS: Ht 167.6 cm; Wt 91.0 kg
[~2020-01-20 01:59] MED LIST changes: -MONT10TA24 PO; +MONT10TA26 PO
[2020-01-20] MEDS ORDERED: GABAPENTIN 300MG CAPSULE PO SCH (03:30)
[2020-01-20 04:00] VITALS: BP 128/68
== END 2020-01-20 05:06 | disposition home or self-care (01) ==
LOC: ER 01:59
DX: M79.10 Myalgia, unspecified site (principal); J45.909 Unspecified asthma, uncomplicated; I10 Essential (primary) hypertension; Z86.73 Personal history of transient ischemic attack (TIA), and cerebral infarction without residual deficits; Z88.0 Allergy status to penicillin; Z79.899 Other long term (current) drug therapy
CPT/HCPCS: 99283

== ENCOUNTER 2020-05-05 19:22 | Emergency (ER) | payer MEDICAID ==
[~2020-05-05] VITALS: Ht 170.2 cm; Wt 73.0 kg
[2020-05-05 21:00] LABS: BASOPHILS % 0.5 % (0.0-2.0); EOSINOPHILS % 4.9 % (0.0-5.0); HEMATOCRIT. 38.8 % (36.0-48.0); HEMOGLOBIN. 13.2 g/dL (12.0-16.0); LYMPHOCYTES % 40.3 % (20.0-50.0); MEAN CORPUSCULAR HEMOGLOBIN 31.4 pg (28.0-32.0); MEAN CORPUSCULAR VOLUME 92.3 fL (81.0-99.0); MEAN PLATELET VOLUME 8.7 fl (7.4-10.4); MONOCYTES % 9.6 % (2.0-8.0); NEUTROPHILS % 44.7 % (40.0-76.0); PLATELET 217 x1000/uL (130-400); RED CELL DISTRIBUTION WIDTH 15.9 % (11.6-14.6)
[2020-05-05 21:08] LABS: INR 1.1; PROTHROMBIN TIME 11.2 sec (9.6-11.0)
[2020-05-05 21:36] LABS: CHLORIDE 110 mEq/L (98-107)
[2020-05-05] MEDS ORDERED: LOPERAMIDE HCL 2MG CAPSULE PO ONE (22:45)
[2020-05-05 23:26] VITALS: BP 113/68
== END 2020-05-05 23:28 | disposition home or self-care (01) ==
LOC: ER 19:22
DX: R19.7 Diarrhea, unspecified (principal); I10 Essential (primary) hypertension; J45.909 Unspecified asthma, uncomplicated; Z86.73 Personal history of transient ischemic attack (TIA), and cerebral infarction without residual deficits; F14.10 Cocaine abuse, uncomplicated; Z87.39 Personal history of other diseases of the musculoskeletal system and connective tissue; Z79.899 Other long term (current) drug therapy
CPT/HCPCS: 36415; 80053; 85025; 93005; 99284

== ENCOUNTER 2020-08-19 08:28 | Emergency (ER) | payer MEDICAID ==
[~2020-08-19] VITALS: Ht 165.1 cm; Wt 73.0 kg
[2020-08-19] MEDS ORDERED: IBUPROFEN 600MG TABLET PO ONE (10:15)
[2020-08-19] MEDS ORDERED: ACETAMINOPHEN 325MG TABLET PO ONE (10:15)
[2020-08-19 13:53] VITALS: BP 118/69
== END 2020-08-19 14:51 | disposition home or self-care (01) ==
LOC: ER 08:28
DX: M79.644 Pain in right finger(s) (principal); J45.909 Unspecified asthma, uncomplicated; I10 Essential (primary) hypertension; Z86.73 Personal history of transient ischemic attack (TIA), and cerebral infarction without residual deficits; Z79.899 Other long term (current) drug therapy; Z88.0 Allergy status to penicillin
CPT/HCPCS: 29130; 73140; 99285

== ENCOUNTER 2020-09-09 22:41 | Emergency (ER) | payer MEDICAID ==
[~2020-09-09] VITALS: Ht 160 cm; Wt 84.0 kg
[2020-09-09] MEDS ORDERED: HYDROCODONE/ACETAMINOPHEN 5/325MG TABLET PO ONE (23:15)
[2020-09-10 02:37] LABS: CLARITY URINE CLOUDY (CLEAR); COLOR URINE YELLOW (YELLOW); KETONES URINE NEGATIVE (NEGATIVE); LEUKOCYTE ESTERASE URINE NEGATIVE (NEGATIVE); NITRITE URINE NEGATIVE (NEGATIVE); OCCULT BLOOD URINE NEGATIVE (NEGATIVE); PROTEIN URINE TRACE (NEGATIVE); SPECIFIC GRAVITY URINE 1.027 (1.005-1.030)
[2020-09-10 09:02] VITALS: BP 116/64
== END 2020-09-10 09:45 | disposition home or self-care (01) ==
LOC: ER 22:41
DX: M54.5 Low back pain (principal); I10 Essential (primary) hypertension; J45.909 Unspecified asthma, uncomplicated; Z87.39 Personal history of other diseases of the musculoskeletal system and connective tissue; I69.30 Unspecified sequelae of cerebral infarction; Z74.01 Bed confinement status
CPT/HCPCS: 81003; 99283

== ENCOUNTER 2021-05-04 06:54 | Emergency (ER) | payer MEDICAID ==
[~2021-05-04] VITALS: Ht 162.6 cm; Wt 125.0 kg
[~2021-05-04 06:54] MED LIST changes: +CLOP-31 MT; -CLOP75TA4 MT; -MONT10TA26 PO; +MONT10TA32 PO
[2021-05-04] MEDS ORDERED: HYDROCODONE/ACETAMINOPHEN 5/325MG TABLET PO ONE (07:15)
[2021-05-04] MEDS ORDERED: ONDANSETRON 4MG ODT PO ONE (07:15)
[2021-05-04] MEDS ORDERED: HYDR-4346 MT (09:22)
[2021-05-04 11:20] VITALS: BP 111/77
== END 2021-05-04 11:25 | disposition home or self-care (01) ==
LOC: ER 06:54
DX: M25.572 Pain in left ankle and joints of left foot (principal); M25.571 Pain in right ankle and joints of right foot; M79.672 Pain in left foot; M79.671 Pain in right foot; M79.662 Pain in left lower leg; M79.661 Pain in right lower leg; R10.2 Pelvic and perineal pain; I10 Essential (primary) hypertension; J45.909 Unspecified asthma, uncomplicated; Z87.898 Personal history of other specified conditions; M19.90 Unspecified osteoarthritis, unspecified site; Z79.899 Other long term (current) drug therapy
CPT/HCPCS: 72170; 73590; 73610; 73630; 99284; Q0162

== ENCOUNTER 2022-04-04 12:09 | Emergency (ER) | payer MEDICAID ==
[~2022-04-04] VITALS: Ht 160 cm; Wt 90.0 kg
[~2022-04-04 12:09] MED LIST changes: +HYDR-4346 MT; +MONT-39 PO; -MONT10TA32 PO
[2022-04-04 15:37] LABS: BASOPHILS % 0.4 % (0.0-2.0); EOSINOPHILS % 3.3 % (0.0-5.0); HEMATOCRIT. 43.2 % (36.0-48.0); HEMOGLOBIN. 14.2 g/dL (12.0-16.0); LYMPHOCYTES % 38.8 % (20.0-50.0); MEAN CORPUSCULAR VOLUME 94.5 fL (81.0-99.0); MEAN PLATELET VOLUME 8.4 fl (7.4-10.4); MONOCYTES % 11.5 % (2.0-8.0); PLATELET 281 x1000/uL (130-400); RED BLOOD CELL COUNT 4.57 mill/uL (4.2-5.4)
[2022-04-04 15:47] LABS: CHLORIDE 104 mEq/L (98-107)
[2022-04-05 11:17] VITALS: BP 127/72
[2022-04-05 13:25] LABS: CLARITY URINE TURBID (CLEAR); COLOR URINE DARK YELLOW (YELLOW); KETONES URINE 1+ (NEGATIVE); LEUKOCYTE ESTERASE URINE 2+ (NEGATIVE); NITRITE URINE NEGATIVE (NEGATIVE); OCCULT BLOOD URINE TRACE (NEGATIVE); PH URINE 5.5 (4.5-8.0); PROTEIN URINE TRACE (NEGATIVE); SPECIFIC GRAVITY URINE 1.017 (1.005-1.030)
== END 2022-04-05 11:20 | disposition home or self-care (01) ==
LOC: ER 12:09
DX: M79.18 Myalgia, other site (principal); R53.1 Weakness; I10 Essential (primary) hypertension; J45.909 Unspecified asthma, uncomplicated; Z86.73 Personal history of transient ischemic attack (TIA), and cerebral infarction without residual deficits
CPT/HCPCS: 36415; 80048; 81003; 85025; 99285

== ENCOUNTER 2022-04-15 17:17 | Emergency (ER) | payer MEDICAID ==
[~2022-04-15] VITALS: Ht 177.8 cm; Wt 140.0 kg
[2022-04-15] MEDS ORDERED: KETOROLAC 30MG/ML VIAL IV STA (18:24)
[2022-04-15 18:48] LABS: BASOPHILS % 0.5 % (0.0-2.0); CHLORIDE 104 mEq/L (98-107); EOSINOPHILS % 2.4 % (0.0-5.0); HEMATOCRIT. 41.4 % (36.0-48.0); HEMOGLOBIN. 13.8 g/dL (12.0-16.0); LYMPHOCYTES % 31.3 % (20.0-50.0); MEAN CORPUSCULAR HEMOGLOBIN 31.7 pg (28.0-32.0); MEAN CORPUSCULAR VOLUME 95.2 fL (81.0-99.0); MEAN PLATELET VOLUME 8.4 fl (7.4-10.4); NEUTROPHILS % 54.8 % (40.0-76.0); PLATELET 333 x1000/uL (130-400); RED BLOOD CELL COUNT 4.34 mill/uL (4.2-5.4); RED CELL DISTRIBUTION WIDTH 15.2 % (11.6-14.6)
[2022-04-15] MEDS ORDERED: ACET-2708 MT (19:44)
[2022-04-15 20:00] VITALS: BP 144/89
== END 2022-04-15 22:48 | disposition home or self-care (01) ==
LOC: ER 17:17
DX: M79.10 Myalgia, unspecified site (principal); I10 Essential (primary) hypertension; E11.9 Type 2 diabetes mellitus without complications; Z88.0 Allergy status to penicillin; Z79.899 Other long term (current) drug therapy
CPT/HCPCS: 36415; 80053; 85025; 96374; 99284; J1885

== ENCOUNTER 2022-04-18 12:01 | Emergency (ER) | payer MEDICAID ==
[~2022-04-18] VITALS: Ht 170.2 cm; Wt 91.0 kg
[~2022-04-18 12:01] MED LIST changes: +ACET-2708 MT; -MONT-39 PO; +MONT10TA32 PO
[2022-04-18 12:03] VITALS: BP 106/71
[2022-04-18] MEDS ORDERED: IBUPROFEN 800MG TABLET PO ONE (13:45)
[2022-04-18] MEDS ORDERED: HYDROCODONE/ACETAMINOPHEN 10/325MG TABLET PO ONE (13:45)
[2022-04-18] MEDS ORDERED: TRAM50TA3 MT (15:15)
== END 2022-04-18 18:25 | disposition home or self-care (01) ==
LOC: ER 13:28
DX: S40.012A Contusion of left shoulder, initial encounter (principal); S40.011A Contusion of right shoulder, initial encounter; I10 Essential (primary) hypertension; J45.909 Unspecified asthma, uncomplicated; Z88.0 Allergy status to penicillin; Z79.899 Other long term (current) drug therapy; Z98.890 Other specified postprocedural states; Z86.73 Personal history of transient ischemic attack (TIA), and cerebral infarction without residual deficits; X58.XXXA Exposure to other specified factors, initial encounter; Y93.89 Activity, other specified; Y92.89 Other specified places as the place of occurrence of the external cause; Y99.8 Other external cause status
CPT/HCPCS: 73030; 99283

== ENCOUNTER 2022-04-26 12:00 | Inpatient (IN) | payer MEDICAID ==
[~2022-04-26] VITALS: Ht 160 cm; Wt 97.1 kg
[~2022-04-26 12:00] MED LIST changes: +MONT-39 PO; -MONT10TA32 PO; +TRAM50TA3 MT
[2022-04-26] MEDS ORDERED: MORPHINE SULFATE 4 MG/ML CPJ (NOT FOR IM USE) IV STA (12:43)
[2022-04-26] MEDS ORDERED: ONDANSETRON HCL 4MG/2ML INJ IV STA (12:43)
[2022-04-26] MEDS ORDERED: SODIUM CHLORIDE 0.9% 1,000 ML IV ONE (12:45)
[2022-04-26 13:05] LABS: BASOPHILS % 0.5 % (0.0-2.0); EOSINOPHILS % 2.5 % (0.0-5.0); HEMATOCRIT. 44.1 % (36.0-48.0); HEMOGLOBIN. 14.5 g/dL (12.0-16.0); LYMPHOCYTES % 36.6 % (20.0-50.0); MEAN CORPUSCULAR HEMOGLOBIN 31.1 pg (28.0-32.0); MEAN CORPUSCULAR VOLUME 94.3 fL (81.0-99.0); MEAN PLATELET VOLUME 9.1 fl (7.4-10.4); MONOCYTES % 10.1 % (2.0-8.0); NEUTROPHILS % 50.3 % (40.0-76.0); PLATELET 304 x1000/uL (130-400); RED BLOOD CELL COUNT 4.68 mill/uL (4.2-5.4); RED CELL DISTRIBUTION WIDTH 15.1 % (11.6-14.6)
[2022-04-26 13:14] LABS: CHLORIDE 105 mEq/L (98-107)
[2022-04-26] MEDS ORDERED: POTASSIUM CHLORIDE 20MEQ TABLET SR PO ONE (16:30)
[2022-04-26] MEDS ORDERED: ACETAMINOPHEN 325MG TABLET PO PRN (17:00)
[2022-04-26] MEDS ORDERED: CLONIDINE 0.1MG TABLET PO PRN (17:00)
[2022-04-26] MEDS ORDERED: LORAZEPAM 2MG/ML CPJ IV PRN (17:00)
[2022-04-26] MEDS ORDERED: DIPHENHYDRAMINE 50MG/ML VIAL IV PRN (17:00)
[2022-04-26] MEDS ORDERED: MAGNESIUM/ALUMINUM HYDROXIDE/SIMETHICONE 30ML UDC PO PRN (17:00)
[2022-04-26] MEDS ORDERED: GUAIFENESIN 200MG/10ML SUGAR FREE UDC PO PRN (17:00)
[2022-04-26] MEDS ORDERED: DOCUSATE SODIUM 100MG CAPSULE PO PRN (17:00)
[2022-04-26] MEDS ORDERED: MORPHINE SULFATE 4 MG/ML CPJ (NOT FOR IM USE) IV SCH (17:00)
[2022-04-26] MEDS ORDERED: IPRATROPIUM/ALBUTEROL 0.5-3(2.5)MG/3ML NEB NEB PRN (17:00)
[2022-04-26] MEDS: SODIUM CHLORIDE 0.45% 1,000 ML IV SCH (17:03)
[2022-04-26] MEDS ORDERED: ONDANSETRON HCL 4MG/2ML INJ IV SCH (17:15)
[2022-04-26] MEDS ORDERED: NALOXONE HCL 0.4MG/ML VIAL IV PRN (17:30)
[2022-04-26 18:33] VITALS: BP 135/72
[2022-04-26] MEDS ORDERED: GABA-529 (18:55)
[2022-04-26 19:12] LABS: CHLORIDE 105 mEq/L (98-107)
[2022-04-26 20:00] VITALS: BP 124/67
[2022-04-26] MEDS: MORPHINE SULFATE 2 MG/ML CPJ (NOT FOR IM USE) IV PRN (20:52)
[2022-04-27] VITALS: BP 103/70
[2022-04-27 04:00] VITALS: BP 138/83
[2022-04-27 07:54] LABS: BASOPHILS % 0.3 % (0.0-2.0); EOSINOPHILS % 3.1 % (0.0-5.0); HEMOGLOBIN. 14.1 g/dL (12.0-16.0); LYMPHOCYTES % 35.3 % (20.0-50.0); MEAN CORPUSCULAR HEMOGLOBIN 31.5 pg (28.0-32.0); MEAN CORPUSCULAR VOLUME 96.2 fL (81.0-99.0); MONOCYTES % 11.7 % (2.0-8.0); NEUTROPHILS % 49.6 % (40.0-76.0); RED BLOOD CELL COUNT 4.47 mill/uL (4.2-5.4); RED CELL DISTRIBUTION WIDTH 15.3 % (11.6-14.6)
[2022-04-27 08:00] VITALS: BP 126/79
[2022-04-27 08:03] LABS: CHLORIDE 107 mEq/L (98-107)
[2022-04-27] MEDS: ASPIRIN 81MG EC TABLET PO SCH (08:32)
[2022-04-27] MEDS: HYDROCODONE/ACETAMINOPHEN 5/325MG TABLET PO PRN (09:55)
[2022-04-27 09:57] LABS: PLATELET 249 x1000/uL (130-400)
[2022-04-27 09:58] LABS: MEAN PLATELET VOLUME 9.6 fl (7.4-10.4)
[2022-04-27 12:00] VITALS: BP 121/88
[2022-04-27] MEDS: SODIUM CHLORIDE 0.45% 1,000 ML IV SCH (13:40)
[2022-04-27 15:42] VITALS: BP 132/82
[2022-04-27 20:00] VITALS: BP 140/81
[2022-04-27] MEDS: MORPHINE SULFATE 2 MG/ML CPJ (NOT FOR IM USE) IV PRN (22:49)
[2022-04-28] VITALS: BP 145/60
[2022-04-28 04:00] VITALS: BP 129/81
[2022-04-28] MEDS: HYDROCODONE/ACETAMINOPHEN 5/325MG TABLET PO PRN ×2 (06:35→16:08)
[2022-04-28 08:00] VITALS: BP 117/63
[2022-04-28] MEDS: ASPIRIN 81MG EC TABLET PO SCH (09:48)
[2022-04-28] MEDS: SODIUM CHLORIDE 0.45% 1,000 ML IV SCH (09:49)
[2022-04-28 12:00] VITALS: BP 130/78
[2022-04-28] MEDS: ONDANSETRON HCL 4MG/2ML INJ IV PRN ×2 (13:11→22:17)
[2022-04-28 16:00] VITALS: BP 112/77
[2022-04-28 20:00] VITALS: BP 119/68
[2022-04-29] VITALS: BP 144/88
[2022-04-29 04:00] VITALS: BP 139/65
[2022-04-29] MEDS: SODIUM CHLORIDE 0.45% 1,000 ML IV SCH (05:00)
[2022-04-29] MEDS: HYDROCODONE/ACETAMINOPHEN 5/325MG TABLET PO PRN (05:41)
[2022-04-29 07:14] LABS: BASOPHILS % 0.3 % (0.0-2.0); EOSINOPHILS % 3.4 % (0.0-5.0); HEMOGLOBIN. 15.4 g/dL (12.0-16.0); LYMPHOCYTES % 33.6 % (20.0-50.0); MEAN CORPUSCULAR HEMOGLOBIN 31.4 pg (28.0-32.0); MEAN CORPUSCULAR VOLUME 94.2 fL (81.0-99.0); MEAN PLATELET VOLUME 9.9 fl (7.4-10.4); MONOCYTES % 10.6 % (2.0-8.0); NEUTROPHILS % 52.1 % (40.0-76.0); PLATELET 288 x1000/uL (130-400); RED BLOOD CELL COUNT 4.89 mill/uL (4.2-5.4); RED CELL DISTRIBUTION WIDTH 15.4 % (11.6-14.6)
[2022-04-29 07:52] LABS: CHLORIDE 102 mEq/L (98-107)
[2022-04-29 08:00] VITALS: BP 126/65
[2022-04-29] MEDS: ASPIRIN 81MG EC TABLET PO SCH (10:35)
[2022-04-29 12:00] VITALS: BP 140/75
[2022-04-29] MEDS: ONDANSETRON HCL 4MG/2ML INJ IV PRN (13:55)
[2022-04-29] MEDS ORDERED: POTASSIUM CHLORIDE 20MEQ TABLET SR PO NR (14:00)
[2022-04-29 16:00] VITALS: BP 130/70
[2022-04-29 20:00] VITALS: BP 119/73
[2022-04-29] MEDS: MORPHINE SULFATE 2 MG/ML CPJ (NOT FOR IM USE) IV PRN (20:10)
[2022-04-30] VITALS: BP 117/64
[2022-04-30] MEDS: SODIUM CHLORIDE 0.45% 1,000 ML IV SCH ×2 (00:57→21:33)
[2022-04-30 04:00] VITALS: BP 104/54
[2022-04-30 08:00] VITALS: BP 154/79
[2022-04-30] MEDS: ASPIRIN 81MG EC TABLET PO SCH (08:41)
[2022-04-30 12:00] VITALS: BP 124/76
[2022-04-30] MEDS: MORPHINE SULFATE 2 MG/ML CPJ (NOT FOR IM USE) IV PRN ×2 (12:07→21:33)
[2022-04-30 16:00] VITALS: BP 127/78
[2022-04-30 20:00] VITALS: BP 115/77
[2022-05-01] VITALS: BP 120/70
[2022-05-01 04:00] VITALS: BP 112/54
[2022-05-01] MEDS: MORPHINE SULFATE 2 MG/ML CPJ (NOT FOR IM USE) IV PRN (05:18)
[2022-05-01 08:00] VITALS: BP 100/61
[2022-05-01] MEDS: ASPIRIN 81MG EC TABLET PO SCH (08:30)
[2022-05-01 12:00] VITALS: BP 110/73
[2022-05-01 12:08] VITALS: BP 110/73
[2022-05-01 16:00] VITALS: BP 132/90
[2022-05-01] MEDS: SODIUM CHLORIDE 0.45% 1,000 ML IV SCH (16:48)
== END 2022-05-01 18:40 | disposition home or self-care (01) | DRG 347 ==
LOC: ER 12:09 → 8WST 16:29 → ENRESERV 16:58
PROVIDERS: ADMIT Internal Medicine; ATTEND Internal Medicine
DX: M48.07 Spinal stenosis, lumbosacral region (principal); I11.0 Hypertensive heart disease with heart failure; E46 Unspecified protein-calorie malnutrition; I69.954 Hemiplegia and hemiparesis following unspecified cerebrovascular disease affecting left non-dominant side; G90.9 Disorder of the autonomic nervous system, unspecified; I50.9 Heart failure, unspecified; E66.9 Obesity, unspecified; E87.6 Hypokalemia; Z20.822 Contact with and (suspected) exposure to COVID-19; I25.10 Atherosclerotic heart disease of native coronary artery without angina pectoris; J45.909 Unspecified asthma, uncomplicated; M51.37 Other intervertebral disc degeneration, lumbosacral region; Z88.0 Allergy status to penicillin; Z79.891 Long term (current) use of opiate analgesic; Z79.899 Other long term (current) drug therapy; Z74.01 Bed confinement status; Z68.37 Body mass index [BMI] 37.0-37.9, adult; Z82.49 Family history of ischemic heart disease and other diseases of the circulatory system
CPT/HCPCS: 36415; 71045; 72128; 72131; 72146; 72148; 80048; 80053; 83735; 83880; 84484; 85025; 87426; 93005; 97110; 97162; 99285; J1200; J2060; J2270; J2405; J7030

== ENCOUNTER 2022-05-07 11:15 | Inpatient (IN) | payer MEDICAID ==
[~2022-05-07] VITALS: Ht 170.2 cm; Wt 90.8 kg
[~2022-05-07 11:15] MED LIST changes: +GABA-529
[2022-05-07] MEDS ORDERED: SODIUM CHLORIDE 0.9% 1,000 ML IV ONE (11:45)
[2022-05-07 12:09] LABS: BASOPHILS % 0.3 % (0.0-2.0); EOSINOPHILS % 3.7 % (0.0-5.0); HEMOGLOBIN. 14.5 g/dL (12.0-16.0); LYMPHOCYTES % 25.5 % (20.0-50.0); MEAN CORPUSCULAR HEMOGLOBIN 30.9 pg (28.0-32.0); MEAN CORPUSCULAR VOLUME 93.9 fL (81.0-99.0); MEAN PLATELET VOLUME 9.4 fl (7.4-10.4); MONOCYTES % 10.4 % (2.0-8.0); NEUTROPHILS % 60.1 % (40.0-76.0); PLATELET 344 x1000/uL (130-400); RED BLOOD CELL COUNT 4.69 mill/uL (4.2-5.4); RED CELL DISTRIBUTION WIDTH 15.4 % (11.6-14.6)
[2022-05-07 12:15] LABS: CHLORIDE 111 mEq/L (98-107)
[2022-05-07 12:32] LABS: INR 1.1; PARTIAL THROMBOPLASTIN TIME 27.7 sec (23.4-31.0); PROTHROMBIN TIME 11.6 sec (9.6-11.0)
[2022-05-07] MEDS ORDERED: CLONIDINE 0.1MG TABLET PO PRN (14:15)
[2022-05-07] MEDS ORDERED: DIPHENHYDRAMINE 50MG/ML VIAL IV PRN (14:15)
[2022-05-07] MEDS ORDERED: ONDANSETRON HCL 4MG/2ML INJ IV PRN (14:15)
[2022-05-07] MEDS: PANTOPRAZOLE SODIUM 40 MG/VIAL IV SCH (14:45)
[2022-05-07 15:52] LABS: TOTAL IRON BINDING CAPACITY 280 ug/dL (250-450)
[2022-05-07 16:16] LABS: FOLIC ACID (FOLATE) SERUM 6.4 ng/mL (>5.38)
[2022-05-07] MEDS ORDERED: ASPIRIN 81MG TABLET PO ONE (17:30)
[2022-05-07 20:00] VITALS: BP 112/85
[2022-05-07 20:01] LABS: HEMATOCRIT 41.3 % (36.0-48.0); HEMOGLOBIN 13.5 g/dL (12.0-16.0)
[2022-05-07 20:15] VITALS: BP 112/85
[2022-05-08] VITALS: BP 152/98
[2022-05-08 01:54] LABS: HEMATOCRIT 41.3 % (36.0-48.0); HEMOGLOBIN 13.6 g/dL (12.0-16.0)
[2022-05-08] MEDS: PANTOPRAZOLE SODIUM 40 MG/VIAL IV SCH ×2 (02:14→14:36)
[2022-05-08 04:00] VITALS: BP 139/82
[2022-05-08] MEDS: ACETAMINOPHEN 325MG TABLET PO PRN ×2 (05:15→14:38)
[2022-05-08 08:00] VITALS: BP 133/82
[2022-05-08 10:10] LABS: BASOPHILS % 0.2 % (0.0-2.0); EOSINOPHILS % 5.3 % (0.0-5.0); HEMATOCRIT. 42.5 % (36.0-48.0); HEMOGLOBIN. 14.1 g/dL (12.0-16.0); MEAN CORPUSCULAR HEMOGLOBIN 31.3 pg (28.0-32.0); MEAN PLATELET VOLUME 9.3 fl (7.4-10.4); MONOCYTES % 10.7 % (2.0-8.0); NEUTROPHILS % 52.8 % (40.0-76.0); PLATELET 306 x1000/uL (130-400); RED BLOOD CELL COUNT 4.52 mill/uL (4.2-5.4); RED CELL DISTRIBUTION WIDTH 15.6 % (11.6-14.6)
[2022-05-08 11:09] LABS: CHLORIDE 110 mEq/L (98-107)
[2022-05-08 12:00] VITALS: BP 133/67
[2022-05-08 16:00] VITALS: BP 137/65
[2022-05-08 16:45] LABS: HEMATOCRIT 46.1 % (36.0-48.0); HEMOGLOBIN 14.4 g/dL (12.0-16.0)
[2022-05-08 19:34] LABS: HEMATOCRIT 40.5 % (36.0-48.0); HEMOGLOBIN 13.2 g/dL (12.0-16.0)
[2022-05-08 20:00] VITALS: BP 126/88
[2022-05-09] VITALS: BP 110/67
[2022-05-09] MEDS: ACETAMINOPHEN 325MG TABLET PO PRN ×2 (00:33→08:33)
[2022-05-09 04:00] VITALS: BP 124/72
[2022-05-09 08:00] VITALS: BP 129/71
[2022-05-09 08:14] LABS: BASOPHILS % 0.3 % (0.0-2.0); EOSINOPHILS % 4.6 % (0.0-5.0); HEMATOCRIT. 40.6 % (36.0-48.0); HEMOGLOBIN. 13.4 g/dL (12.0-16.0); LYMPHOCYTES % 35.9 % (20.0-50.0); MEAN CORPUSCULAR HEMOGLOBIN 31.3 pg (28.0-32.0); MEAN CORPUSCULAR VOLUME 94.6 fL (81.0-99.0); MEAN PLATELET VOLUME 9.6 fl (7.4-10.4); MONOCYTES % 8.3 % (2.0-8.0); NEUTROPHILS % 50.9 % (40.0-76.0); PLATELET 295 x1000/uL (130-400); RED CELL DISTRIBUTION WIDTH 15.3 % (11.6-14.6)
[2022-05-09 08:20] LABS: CHLORIDE 109 mEq/L (98-107)
[2022-05-09] MEDS ORDERED: NALOXONE HCL 0.4MG/ML VIAL IV PRN (08:45)
[2022-05-09] MEDS: HYDROCODONE/ACETAMINOPHEN 5/325MG TABLET PO PRN ×2 (08:47→16:52)
[2022-05-09] MEDS ORDERED: PANTOPRAZOLE SODIUM 40 MG/VIAL IV SCH (09:00)
[2022-05-09 12:00] VITALS: BP 106/63
[2022-05-09 16:00] VITALS: BP 128/88
[2022-05-09 20:00] VITALS: BP 120/77
[2022-05-09] MEDS ORDERED: DIPHENHYDRAMINE 25MG CAPSULE PO PRN (21:45)
[2022-05-10] VITALS: BP 118/84
[2022-05-10] MEDS: HYDROCODONE/ACETAMINOPHEN 5/325MG TABLET PO PRN ×3 (02:57→21:22)
[2022-05-10 04:00] VITALS: BP 127/70
[2022-05-10 06:57] LABS: BASOPHILS % 0.4 % (0.0-2.0); EOSINOPHILS % 5.6 % (0.0-5.0); HEMATOCRIT. 41.8 % (36.0-48.0); HEMOGLOBIN. 13.8 g/dL (12.0-16.0); LYMPHOCYTES % 33.7 % (20.0-50.0); MEAN CORPUSCULAR HEMOGLOBIN 31.3 pg (28.0-32.0); MEAN CORPUSCULAR VOLUME 94.6 fL (81.0-99.0); MEAN PLATELET VOLUME 9.9 fl (7.4-10.4); MONOCYTES % 10.1 % (2.0-8.0); NEUTROPHILS % 50.2 % (40.0-76.0); PLATELET 314 x1000/uL (130-400); RED BLOOD CELL COUNT 4.41 mill/uL (4.2-5.4); RED CELL DISTRIBUTION WIDTH 15.4 % (11.6-14.6)
[2022-05-10 07:46] LABS: CHLORIDE 107 mEq/L (98-107)
[2022-05-10 08:00] VITALS: BP 120/73
[2022-05-10] MEDS: PANTOPRAZOLE 40MG DR TABLET PO SCH (08:22)
[2022-05-10 12:00] VITALS: BP 119/81
[2022-05-10 16:00] VITALS: BP 105/67
[2022-05-10 20:00] VITALS: BP 111/63
[2022-05-11] VITALS: BP 126/71
[2022-05-11 04:00] VITALS: BP 90/55
[2022-05-11] MEDS: HYDROCODONE/ACETAMINOPHEN 5/325MG TABLET PO PRN (05:51)
[2022-05-11 08:00] VITALS: BP 103/39
[2022-05-11] MEDS: PANTOPRAZOLE 40MG DR TABLET PO SCH (08:22)
[2022-05-11 12:00] VITALS: BP 127/65
[2022-05-11 13:05] VITALS: BP 127/65
== END 2022-05-11 17:05 | disposition home or self-care (01) | DRG 253 ==
LOC: ER 11:25 → 7WST 13:35 → EDBEDREQTM 13:39 → EDBEDREQ 13:39 → ENRESERV 17:14
PROVIDERS: ADMIT Internal Medicine; ATTEND Internal Medicine
DX: K92.2 Gastrointestinal hemorrhage, unspecified (principal); I10 Essential (primary) hypertension; J45.909 Unspecified asthma, uncomplicated; Z86.73 Personal history of transient ischemic attack (TIA), and cerebral infarction without residual deficits; Z88.0 Allergy status to penicillin; Z79.899 Other long term (current) drug therapy; Z82.49 Family history of ischemic heart disease and other diseases of the circulatory system
CPT/HCPCS: 36415; 71045; 72141; 80048; 80053; 80320; 82270; 82607; 82728; 82746; 82962; 83540; 83550; 83735; 83880; 84484; 85014; 85018; 85025; 85044; 86850; 86900; 87493; 93005; 93970; 99285; C1893; C9113; J1200; J7030; Q0163; G0480

== ENCOUNTER 2025-04-06 12:33 | Emergency (ER) | payer MEDICAID ==
[~2025-04-06] VITALS: Ht 172.7 cm; Wt 136.0 kg
[~2025-04-06 12:33] MED LIST changes: +AMLO-905 PO; -AMLO10TA4 PO; +PERM60CR4 TP
[2025-04-06 12:44] VITALS: O2SAT 99
[2025-04-06] MEDS ORDERED: ACET-2708 MT (14:43)
[2025-04-07 00:01] VITALS: BP 108/60; PULSE 84; RESP 18; TEMP 37.1; O2SAT 98
== END 2025-04-07 00:07 | disposition home or self-care (01) ==
LOC: ER 12:33
DX: M79.651 Pain in right thigh (principal); I10 Essential (primary) hypertension; J45.909 Unspecified asthma, uncomplicated; Z88.0 Allergy status to penicillin; Z79.899 Other long term (current) drug therapy; Z98.890 Other specified postprocedural states; Z86.73 Personal history of transient ischemic attack (TIA), and cerebral infarction without residual deficits; W06.XXXA Fall from bed, initial encounter; Y93.89 Activity, other specified; Y92.89 Other specified places as the place of occurrence of the external cause; Y99.8 Other external cause status
CPT/HCPCS: 36415; 72170; 73552; 73560; 73590; 73600; 73620; 84702; 99284